=== PATIENT | female | born 1960 | race Caucasian/White ===

== ENCOUNTER → 2017-02-26 | Outpatient (REF) | payer OTHER, MEDICAID ==
[~2017-02-26] MED LIST: PROZ10CA7 PO
[2017-02-26 13:41] LABS: BASO % 0.7 % (0.0-1.0); EOS # 0.1 K/mm3 (0.0-0.50); EOS % 1.5 % (0.0-3.0); LARGE UNSTAINED CELL # 0.1 K/mm3 (0.0-0.4); LARGE UNSTAINED CELL % 2.1 % (0.0-4.0); LYMPH # 1.3 K/mm3 (1.5-4.5); LYMPH % 23.2 % (24.0-44.0); MEAN CORPUSCULAR HGB CONC 34.2 g/dl (32.0-36.5); MEAN CORPUSCULAR VOLUME 93.5 fl (80.0-96.0); MONO # 0.4 K/mm3 (0.0-0.8); MONO % 6.7 % (0.0-5.0); NEUTROPHILS # 3.6 K/mm3 (1.8-7.7); NEUTROPHILS % 65.7 % (36.0-66.0); PLATELET COUNT, AUTOMATED 286 k/mm3 (150-450); RED CELL DISTRIBUTION WIDTH 12.3 % (11.5-14.5); WHITE BLOOD COUNT 5.5 K/mm3 (4.0-10.0)
[2017-02-26 15:04] LABS: ALBUMIN 4.3 GM/DL (3.2-5.2); ALBUMIN/GLOBULIN RATIO 1.48 (1.00-1.93); ALKALINE PHOSPHATASE 86 U/L (45-117); ALT/SGPT 35 U/L (12-78); ANION GAP 9 MEQ/L (8-16); AST/SGOT 18 U/L (15-37); BILIRUBIN,TOTAL 0.5 MG/DL (0.2-1.0); BLOOD UREA NITROGEN 13 MG/DL (7-18); CALCIUM LEVEL 9.9 MG/DL (8.5-10.1); CARBON DIOXIDE LEVEL 27 MEQ/L (21-32); CHLORIDE LEVEL 109 MEQ/L (98-107); CHOLESTEROL LEVEL 227 MG/DL (<200); CREATININE FOR GFR 0.63 MG/DL (0.55-1.02); GLOMERULAR FILTRATION RATE > 60.0 (>51); GLUCOSE, FASTING 99 MG/DL (70-105); POTASSIUM SERUM 4.4 MEQ/L (3.5-5.1); SODIUM LEVEL 145 MEQ/L (136-145); TOTAL PROTEIN 7.2 GM/DL (6.4-8.2); TRIGLYCERIDES LEVEL 125 MG/DL (<150)
== END ==
LOC: M LAB REF 09:05
PROVIDERS: ATTEND Family Medicine Addiction Medicine
DX: Z00.01 Encounter for general adult medical examination with abnormal findings (principal)

== ENCOUNTER 2017-03-13 09:34 | Emergency (ER) | payer OTHER, MEDICAID ==
[~2017-03-13] VITALS: Ht 154.9 cm; Wt 56.8 kg
[2017-03-13 09:35] VITALS: BP 138/84
[2017-03-13] MEDS ORDERED: PROZ10CA7 PO (09:43)
== END 2017-03-13 10:11 | disposition home or self-care (01) ==
LOC: M ED 09:34
DX: Z11.9 Encounter for screening for infectious and parasitic diseases, unspecified (principal); F99 Mental disorder, not otherwise specified; Z79.899 Other long term (current) drug therapy; Z87.891 Personal history of nicotine dependence

== ENCOUNTER 2017-08-19 07:24 | Emergency (ER) | payer OTHER, MEDICAID ==
[2017-08-19] MEDS: IBUPROFEN 600 MG TAB PO (09:45)
[2017-08-19 10:35] LABS: FREE T4 0.95 NG/DL (0.76-1.46)
== END 2017-08-19 11:03 | disposition left against medical advice (07) ==
LOC: M ED 07:24
DX: M54.2 Cervicalgia (principal); F33.9 Major depressive disorder, recurrent, unspecified; Z87.891 Personal history of nicotine dependence
CPT/HCPCS: 70360

== ENCOUNTER → 2017-08-21 | Outpatient (REF) | payer OTHER ==
[2017-08-21 13:19] LABS: HIV 1&2 SCREEN CENTAUR NEGATIVE (NEGATIVE)
== END ==
LOC: M SFHCPLAZ 09:15
DX: Z11.4 Encounter for screening for human immunodeficiency virus [HIV] (principal); Z11.59 Encounter for screening for other viral diseases

== ENCOUNTER → 2017-09-08 | Outpatient (REF) | payer OTHER ==
[2017-09-08 13:19] LABS: HEMOGLOBIN 14.7 g/dl (12.0-16.0); MEAN CORPUSCULAR HEMOGLOBIN 30.4 pg (27.0-33.0); MEAN CORPUSCULAR HGB CONC 33.4 g/dl (32.0-36.5); MEAN CORPUSCULAR VOLUME 90.9 fl (80.0-96.0); PLATELET COUNT, AUTOMATED 271 10^3/uL (150-450); RED BLOOD COUNT 4.84 10^6/uL (4.00-5.40); RED CELL DISTRIBUTION WIDTH 12.2 % (11.5-14.5); WHITE BLOOD COUNT 8.9 10^3/uL (4.0-10.0)
[2017-09-08 14:12] LABS: ALBUMIN 4.3 GM/DL (3.2-5.2); ALBUMIN/GLOBULIN RATIO 1.48 (1.00-1.93); ALKALINE PHOSPHATASE 96 U/L (45-117); ALT/SGPT 24 U/L (12-78); ANION GAP 8 MEQ/L (8-16); AST/SGOT 16 U/L (7-37); BILIRUBIN,TOTAL 0.4 MG/DL (0.2-1.0); BLOOD UREA NITROGEN 13 MG/DL (7-18); CALCIUM LEVEL 9.3 MG/DL (8.5-10.1); CARBON DIOXIDE LEVEL 28 MEQ/L (21-32); CHLORIDE LEVEL 109 MEQ/L (98-107); CREATININE FOR GFR 0.63 MG/DL (0.55-1.30); GLOMERULAR FILTRATION RATE > 60.0 (>51); GLUCOSE, FASTING 98 MG/DL (70-100); POTASSIUM SERUM 4.1 MEQ/L (3.5-5.1); SODIUM LEVEL 145 MEQ/L (136-145); THYROID STIMULATING HORMONE 0.986 uIU/ML (0.358-3.740); TOTAL PROTEIN 7.2 GM/DL (6.4-8.2)
[2017-09-08 14:19] LABS: LUTEINIZING HORMONE 43.6 mIU/mL
[2017-09-08 14:20] LABS: FOLLICLE STIMULATING HORMONE 48.1 mIU/mL
== END ==
LOC: M SFHCPLAZ 11:57
DX: R19.4 Change in bowel habit (principal); R14.0 Abdominal distension (gaseous); N92.6 Irregular menstruation, unspecified

== ENCOUNTER → 2017-09-10 | Outpatient (REF) | payer OTHER ==
[2017-09-19 10:20] LABS: O+P EXAM Final report (.)
== END ==
LOC: M SFHCPLAZ 11:56
DX: R19.4 Change in bowel habit (principal)
CPT/HCPCS: 87177

== ENCOUNTER → 2017-09-13 | Outpatient (REF) | payer OTHER ==
[2017-09-19 00:08] LABS: O+P EXAM Final report (.)
== END ==
LOC: M SFHCPLAZ 11:50
DX: R19.4 Change in bowel habit (principal)
CPT/HCPCS: 87177

== ENCOUNTER → 2017-09-14 | Outpatient (CLI) | payer OTHER ==
[~2017-09-14] MED LIST changes: +GASTROGRAFIN SOLUTION 30ML (Q9963) As Ordered; +ISOVUE-370 76% 100ML VIAL (Q9967) As Ordered; -PROZ10CA7 PO
== END ==
LOC: M RAD 08:27
DX: R14.0 Abdominal distension (gaseous) (principal); R19.4 Change in bowel habit
CPT/HCPCS: Q9963

== ENCOUNTER → 2017-09-15 | Outpatient (REF) | payer OTHER | LOC: M SFHCPLAZ 09-16 11:37 | DX: R19.4 Change in bowel habit (principal) | CPT/HCPCS: 83630 ==

== ENCOUNTER → 2017-09-16 | Outpatient (REF) | payer OTHER ==
[2017-09-19 00:08] LABS: O+P EXAM Final report (.)
== END ==
LOC: M SFHCPLAZ 11:47
DX: R19.4 Change in bowel habit (principal)

== ENCOUNTER 2018-01-23 12:39 | Inpatient (IN) | payer MEDICAID, SELFPAY, OTHER ==
[2018-01-23 13:19] LABS: HEMOGLOBIN 13.4 g/dl (12.0-15.5); MEAN CORPUSCULAR HGB CONC 32.7 g/dl (32.0-36.5); MEAN CORPUSCULAR VOLUME 91.7 fl (80.0-96.0); PLATELET COUNT, AUTOMATED 331 10^3/uL (150-450); RED BLOOD COUNT 4.47 10^6/uL (4.00-5.40); RED CELL DISTRIBUTION WIDTH 12.2 % (11.5-14.5)
[2018-01-23 13:42] LABS: AMPHETAMINES LEVEL URINE NEGATIVE (NEGATIVE); BARBITURATES URINE NEGATIVE (NEGATIVE); BENZODIAZEPINES URINE NEGATIVE (NEGATIVE); CANNABINOIDS URINE NEGATIVE (NEGATIVE); COCAINE METABOLITE URINE NEGATIVE (NEGATIVE); METHADONE URINE NEGATIVE (NEGATIVE); OPIATES URINE NEGATIVE (NEGATIVE); PHENCYCLIDINE URINE NEGATIVE (NEGATIVE)
[2018-01-23 13:50] LABS: ALBUMIN 4.2 GM/DL (3.2-5.2); ALBUMIN/GLOBULIN RATIO 1.62 (1.00-1.93); ALKALINE PHOSPHATASE 99 U/L (45-117); ALT/SGPT 22 U/L (12-78); ANION GAP 12 MEQ/L (8-16); AST/SGOT 16 U/L (7-37); BILIRUBIN,DIRECT 0.1 MG/DL (0.0-0.2); BILIRUBIN,TOTAL 0.4 MG/DL (0.2-1.0); BLOOD UREA NITROGEN 11 MG/DL (7-18); CARBON DIOXIDE LEVEL 25 MEQ/L (21-32); CHLORIDE LEVEL 103 MEQ/L (98-107); CREATININE FOR GFR 0.74 MG/DL (0.55-1.30); ETHYL ALCOHOL (ETHANOL) < 0.003 % (0.000-0.010); GLOMERULAR FILTRATION RATE > 60.0 (>51); GLUCOSE, FASTING 172 MG/DL (70-100); POTASSIUM SERUM 3.7 MEQ/L (3.5-5.1); SALICYLATE LEVEL 2.2 MG/DL (5.0-30.0); SODIUM LEVEL 140 MEQ/L (136-145); THYROID STIMULATING HORMONE 0.486 uIU/ML (0.358-3.740); TOTAL PROTEIN 6.8 GM/DL (6.4-8.2)
[2018-01-23 13:54] LABS: ACETAMINOPHEN LEVEL < 2.0 UG/ML (10.0-30.0)
[2018-01-23] MEDS ORDERED: MAALOX 30 ML SUSP *UDC PO (16:15)
[2018-01-23] MEDS ORDERED: ACETAMINOPHEN TAB 650MG DOSE (2X325MG) PO (18:00)
[2018-01-24] MEDS: traZODone 50 MG TAB PO (21:37)
[2018-01-24] MEDS: ARIPiprazole 2 MG TAB PO (21:37)
[2018-01-24] MEDS: OLANZapine ORAL DISINTEGRATING TAB 5MG PO (21:38)
[2018-01-25] MEDS: OLANZapine ORAL DISINTEGRATING TAB 5MG PO (08:48)
[2018-01-25] MEDS: OLANZapine 5 MG TAB PO ×2 (15:36→21:27)
[2018-01-25] MEDS: traZODone 50 MG TAB PO (21:27)
[2018-01-26] MEDS: OLANZapine 5 MG TAB PO ×3 (08:19→21:42)
[2018-01-26] MEDS: FLUoxetine 10 MG CAP PO (08:19)
[2018-01-26] MEDS: CEPACOL LOZENGE PO (09:35)
[2018-01-26 09:43] LABS: HEMATOCRIT 39.5 % (36.0-47.0); HEMOGLOBIN 12.7 g/dl (12.0-15.5); MEAN CORPUSCULAR HEMOGLOBIN 30.5 pg (27.0-33.0); MEAN CORPUSCULAR HGB CONC 32.2 g/dl (32.0-36.5); PLATELET COUNT, AUTOMATED 278 10^3/uL (150-450); RED BLOOD COUNT 4.16 10^6/uL (4.00-5.40); RED CELL DISTRIBUTION WIDTH 12.5 % (11.5-14.5); WHITE BLOOD COUNT 4.1 10^3/uL (4.0-10.0)
[2018-01-26 10:14] LABS: ALBUMIN 3.6 GM/DL (3.2-5.2); ALBUMIN/GLOBULIN RATIO 1.33 (1.00-1.93); ALKALINE PHOSPHATASE 81 U/L (45-117); ALT/SGPT 23 U/L (12-78); ANION GAP 7 MEQ/L (8-16); AST/SGOT 10 U/L (7-37); BILIRUBIN,TOTAL 0.3 MG/DL (0.2-1.0); BLOOD UREA NITROGEN 9 MG/DL (7-18); CALCIUM LEVEL 8.9 MG/DL (8.5-10.1); CARBON DIOXIDE LEVEL 29 MEQ/L (21-32); CHLORIDE LEVEL 112 MEQ/L (98-107); CREATININE FOR GFR 0.64 MG/DL (0.55-1.30); GLOMERULAR FILTRATION RATE > 60.0 (>51); GLUCOSE, FASTING 86 MG/DL (70-100); POTASSIUM SERUM 4.1 MEQ/L (3.5-5.1); SODIUM LEVEL 148 MEQ/L (136-145); TOTAL PROTEIN 6.3 GM/DL (6.4-8.2)
[2018-01-26] MEDS: traZODone 50 MG TAB PO (21:41)
[2018-01-27 07:21] LABS: ANION GAP 5 MEQ/L (8-16); BLOOD UREA NITROGEN 14 MG/DL (7-18); CALCIUM LEVEL 9.1 MG/DL (8.5-10.1); CARBON DIOXIDE LEVEL 30 MEQ/L (21-32); CHLORIDE LEVEL 112 MEQ/L (98-107); CREATININE FOR GFR 0.65 MG/DL (0.55-1.30); GLOMERULAR FILTRATION RATE > 60.0 (>51); GLUCOSE, FASTING 93 MG/DL (70-100); POTASSIUM SERUM 4.2 MEQ/L (3.5-5.1); SODIUM LEVEL 147 MEQ/L (136-145)
[2018-01-27] MEDS: FLUoxetine 10 MG CAP PO (08:52)
[2018-01-27] MEDS: OLANZapine 5 MG TAB PO ×3 (08:52→20:48)
[2018-01-28 07:44] LABS: ANION GAP 8 MEQ/L (8-16); BLOOD UREA NITROGEN 20 MG/DL (7-18); CALCIUM LEVEL 9.4 MG/DL (8.5-10.1); CARBON DIOXIDE LEVEL 29 MEQ/L (21-32); CHLORIDE LEVEL 110 MEQ/L (98-107); CREATININE FOR GFR 0.65 MG/DL (0.55-1.30); GLOMERULAR FILTRATION RATE > 60.0 (>51); GLUCOSE, FASTING 93 MG/DL (70-100); POTASSIUM SERUM 4.3 MEQ/L (3.5-5.1); SODIUM LEVEL 147 MEQ/L (136-145)
[2018-01-28] MEDS: OLANZapine 5 MG TAB PO ×3 (08:31→21:28)
[2018-01-28] MEDS: FLUoxetine 10 MG CAP PO (08:31)
[2018-01-28] MEDS: traZODone 50 MG TAB PO (21:28)
[2018-01-29 07:50] LABS: ANION GAP 8 MEQ/L (8-16); BLOOD UREA NITROGEN 18 MG/DL (7-18); CALCIUM LEVEL 9.4 MG/DL (8.5-10.1); CARBON DIOXIDE LEVEL 29 MEQ/L (21-32); CHLORIDE LEVEL 109 MEQ/L (98-107); CREATININE FOR GFR 0.69 MG/DL (0.55-1.30); GLOMERULAR FILTRATION RATE > 60.0 (>51); GLUCOSE, FASTING 92 MG/DL (70-100); POTASSIUM SERUM 4.2 MEQ/L (3.5-5.1); SODIUM LEVEL 146 MEQ/L (136-145)
[2018-01-29] MEDS: OLANZapine 5 MG TAB PO ×3 (08:13→20:41)
[2018-01-29] MEDS: FLUoxetine 10 MG CAP PO (08:13)
[2018-01-29] MEDS: traZODone 50 MG TAB PO (20:41)
[2018-01-29] MEDS: MOM 30ML SUSPENSION UDC PO (20:41)
[2018-01-30 07:14] LABS: ANION GAP 7 MEQ/L (8-16); BLOOD UREA NITROGEN 20 MG/DL (7-18); CARBON DIOXIDE LEVEL 30 MEQ/L (21-32); CHLORIDE LEVEL 109 MEQ/L (98-107); CREATININE FOR GFR 0.62 MG/DL (0.55-1.30); GLOMERULAR FILTRATION RATE > 60.0 (>51); GLUCOSE, FASTING 86 MG/DL (70-100); POTASSIUM SERUM 4.7 MEQ/L (3.5-5.1); SODIUM LEVEL 146 MEQ/L (136-145)
[2018-01-30] MEDS: FLUoxetine 20 MG CAP PO (08:17)
[2018-01-30] MEDS: OLANZapine 5 MG TAB PO ×3 (08:17→20:57)
[2018-01-30] MEDS: MOM 30ML SUSPENSION UDC PO (20:56)
[2018-01-30] MEDS: traZODone 50 MG TAB PO (20:57)
[2018-01-31 07:12] LABS: ANION GAP 6 MEQ/L (8-16); BLOOD UREA NITROGEN 17 MG/DL (7-18); CALCIUM LEVEL 9.1 MG/DL (8.5-10.1); CARBON DIOXIDE LEVEL 31 MEQ/L (21-32); CHLORIDE LEVEL 110 MEQ/L (98-107); CREATININE FOR GFR 0.63 MG/DL (0.55-1.30); GLOMERULAR FILTRATION RATE > 60.0 (>51); GLUCOSE, FASTING 77 MG/DL (70-100); POTASSIUM SERUM 4.4 MEQ/L (3.5-5.1); SODIUM LEVEL 147 MEQ/L (136-145)
[2018-01-31] MEDS: FLUoxetine 20 MG CAP PO (08:17)
[2018-01-31] MEDS: OLANZapine 5 MG TAB PO ×3 (08:17→20:49)
[2018-01-31] MEDS: traZODone 50 MG TAB PO (20:49)
[2018-02-01 07:18] LABS: ANION GAP 8 MEQ/L (8-16); BLOOD UREA NITROGEN 14 MG/DL (7-18); CALCIUM LEVEL 9.1 MG/DL (8.5-10.1); CARBON DIOXIDE LEVEL 28 MEQ/L (21-32); CHLORIDE LEVEL 109 MEQ/L (98-107); CREATININE FOR GFR 0.62 MG/DL (0.55-1.30); GLOMERULAR FILTRATION RATE > 60.0 (>51); GLUCOSE, FASTING 76 MG/DL (70-100); POTASSIUM SERUM 4.4 MEQ/L (3.5-5.1); SODIUM LEVEL 145 MEQ/L (136-145)
[2018-02-01] MEDS: OLANZapine 5 MG TAB PO (08:34)
[2018-02-01] MEDS: FLUoxetine 20 MG CAP PO (08:34)
[2018-02-01] MEDS: traZODone 50 MG TAB PO (21:00)
[2018-02-01] MEDS: OLANZapine 10 MG TAB PO (21:00)
[2018-02-02 08:07] LABS: ANION GAP 7 MEQ/L (8-16); BLOOD UREA NITROGEN 13 MG/DL (7-18); CALCIUM LEVEL 9.3 MG/DL (8.5-10.1); CARBON DIOXIDE LEVEL 29 MEQ/L (21-32); CHLORIDE LEVEL 111 MEQ/L (98-107); CREATININE FOR GFR 0.62 MG/DL (0.55-1.30); GLOMERULAR FILTRATION RATE > 60.0 (>51); GLUCOSE, FASTING 82 MG/DL (70-100); POTASSIUM SERUM 4.3 MEQ/L (3.5-5.1); SODIUM LEVEL 147 MEQ/L (136-145)
[2018-02-02] MEDS: OLANZapine 5 MG TAB PO (08:12)
[2018-02-02] MEDS: FLUoxetine 20 MG CAP PO (08:12)
[2018-02-02] MEDS: OLANZapine 10 MG TAB PO (20:55)
[2018-02-02] MEDS: MOM 30ML SUSPENSION UDC PO (20:55)
[2018-02-02] MEDS: traZODone 50 MG TAB PO (20:55)
[2018-02-03 07:23] LABS: ANION GAP 7 MEQ/L (8-16); BLOOD UREA NITROGEN 18 MG/DL (7-18); CARBON DIOXIDE LEVEL 29 MEQ/L (21-32); CHLORIDE LEVEL 110 MEQ/L (98-107); GLOMERULAR FILTRATION RATE > 60.0 (>51); GLUCOSE, FASTING 81 MG/DL (70-100); POTASSIUM SERUM 4.2 MEQ/L (3.5-5.1); SODIUM LEVEL 146 MEQ/L (136-145)
[2018-02-03] MEDS: FLUoxetine 20 MG CAP PO (08:25)
[2018-02-03] MEDS: OLANZapine 5 MG TAB PO (08:25)
[2018-02-03] MEDS: DOXYCYCLINE HYCLATE 100 MG TAB PO ×2 (14:13→21:19)
[2018-02-03] MEDS: OLANZapine 10 MG TAB PO (21:19)
[2018-02-03] MEDS: traZODone 50 MG TAB PO (21:19)
[2018-02-04 08:27] LABS: ANION GAP 9 MEQ/L (8-16); BLOOD UREA NITROGEN 18 MG/DL (7-18); CARBON DIOXIDE LEVEL 26 MEQ/L (21-32); CHLORIDE LEVEL 108 MEQ/L (98-107); CREATININE FOR GFR 0.77 MG/DL (0.55-1.30); GLOMERULAR FILTRATION RATE > 60.0 (>51); GLUCOSE, FASTING 144 MG/DL (70-100); SODIUM LEVEL 143 MEQ/L (136-145)
[2018-02-04] MEDS: OLANZapine 5 MG TAB PO (08:35)
[2018-02-04] MEDS: DOXYCYCLINE HYCLATE 100 MG TAB PO (08:35)
[2018-02-04] MEDS: FLUoxetine 20 MG CAP PO (08:35)
== END 2018-02-04 10:20 | disposition home or self-care (01) | DRG 751 ==
LOC: M ED 12:39 → M ED INP 16:15 → M PSY 17:25
DX: F33.3 Major depressive disorder, recurrent, severe with psychotic symptoms (principal); E87.0 Hyperosmolality and hypernatremia; R45.851 Suicidal ideations; Z59.0 Homelessness; K21.9 Gastro-esophageal reflux disease without esophagitis; M54.5 Low back pain; J06.9 Acute upper respiratory infection, unspecified

== ENCOUNTER → 2018-03-09 | Outpatient (CLI) | payer MEDICAID ==
[2018-03-09 12:21] LABS: BASO # 0.1 10^3/uL (0.0-0.2); BASO % 1.1 % (0.0-1.0); EOS # 0.2 10^3/uL (0.0-0.50); EOS % 2.8 % (0.0-3.0); HEMATOCRIT 40.6 % (36.0-47.0); HEMOGLOBIN 13.2 g/dl (12.0-15.5); IMMATURE GRANULOCYTE % 0.4 % (0-3.0); LYMPH # 1.4 10^3/uL (1.5-4.5); LYMPH % 27.1 % (24.0-44.0); MEAN CORPUSCULAR HEMOGLOBIN 30.8 pg (27.0-33.0); MEAN CORPUSCULAR HGB CONC 32.5 g/dl (32.0-36.5); MEAN CORPUSCULAR VOLUME 94.9 fl (80.0-96.0); MONO # 0.7 10^3/uL (0.0-0.8); MONO % 13.4 % (0.0-5.0); NEUTROPHILS # 2.9 10^3/uL (1.8-7.7); NEUTROPHILS % 55.2 % (36.0-66.0); PLATELET COUNT, AUTOMATED 229 10^3/uL (150-450); RED BLOOD COUNT 4.28 10^6/uL (4.00-5.40); RED CELL DISTRIBUTION WIDTH 13.5 % (11.5-14.5); WHITE BLOOD COUNT 5.3 10^3/uL (4.0-10.0)
[2018-03-09 12:42] LABS: C REACTIVE PROTEIN QUANTITATIV < 0.30 MG/DL (0.00-0.30)
[2018-03-09 12:49] LABS: ERYTHROCYTE SEDIMENTATION RATE 6 mm/hr (0-30)
[2018-03-11 00:06] LABS: Lyme Disease IgG/IgM Antibodie <0.91 ISR (0.00-0.90); Lyme Disease IgM Ab Quantitati <0.80 index (0.00-0.79)
== END ==
LOC: M WUC 10:19
DX: Z86.19 Personal history of other infectious and parasitic diseases (principal)
CPT/HCPCS: 86140

== ENCOUNTER → 2018-12-16 | Outpatient (REF) | payer MEDICARE, MEDICAID ==
[~2018-12-16] MED LIST changes: +DOXE25CA PO; +DOXY-350 PO; +DOXY100T PO; +FLUO20CA19 PO; -GASTROGRAFIN SOLUTION 30ML (Q9963) As Ordered; -ISOVUE-370 76% 100ML VIAL (Q9967) As Ordered; +OLAN15TA PO; +OLAN7.5T PO; +PROZ10CA7 PO
[2018-12-16 13:46] LABS: HEMATOCRIT 42.7 % (36.0-47.0); HEMOGLOBIN 14.1 g/dl (12.0-15.5); MEAN CORPUSCULAR HEMOGLOBIN 30.4 pg (27.0-33.0); PLATELET COUNT, AUTOMATED 263 10^3/uL (150-450); RED BLOOD COUNT 4.64 10^6/uL (4.00-5.40); WHITE BLOOD COUNT 7.2 10^3/uL (4.0-10.0)
[2018-12-16 14:03] LABS: ALBUMIN 3.7 GM/DL (3.2-5.2); ALT/SGPT 37 U/L (12-78); BILIRUBIN,TOTAL 0.3 MG/DL (0.2-1.0); BLOOD UREA NITROGEN 16 MG/DL (7-18); CALCIUM LEVEL 9.1 MG/DL (8.5-10.1); CARBON DIOXIDE LEVEL 26 MEQ/L (21-32); CHLORIDE LEVEL 110 MEQ/L (98-107); CREATININE FOR GFR 0.73 MG/DL (0.55-1.30); GLOMERULAR FILTRATION RATE > 60.0 (>51); GLUCOSE, FASTING 103 MG/DL (70-100); SODIUM LEVEL 143 MEQ/L (136-145); TOTAL PROTEIN 6.9 GM/DL (6.4-8.2)
== END ==
LOC: M SFHCPLAZ 11:18
PROVIDERS: ATTEND Nurse Practitioner Adult Health
DX: Z00.00 Encounter for general adult medical examination without abnormal findings (principal); F41.8 Other specified anxiety disorders; Z86.19 Personal history of other infectious and parasitic diseases
CPT/HCPCS: 36415; 80053; 84443; 85027; G0463

== ENCOUNTER → 2019-02-25 | Outpatient (REF) | payer MEDICARE, MEDICAID ==
[2019-03-01 14:07] LABS: HPV HYBRID CAPTURE II Negative (Negative)
== END ==
LOC: M SFHCWAGY 14:58
PROVIDERS: ATTEND Nurse Practitioner Women's Health
DX: Z12.4 Encounter for screening for malignant neoplasm of cervix (principal)
CPT/HCPCS: 87624; G0123; G0463

== ENCOUNTER → 2019-03-21 | Outpatient (CLI) | payer MEDICARE, MEDICAID ==
--- NOTE | 2019-03-21 15:43 | REP ---
BILATERAL SCREENING DIGITAL MAMMOGRAM WITH 3D TOMOSYNTHESIS: There are no palpable abnormalities or other breast complaints. The the patient states she had a clinical breast examination February,. The the patient states she performs self-breast examinations zero times per year. The Tyrer Cuzick Score is: 7.9% . Comparison is 01/14/2012. The breasts are heterogeneously dense, which could obscure small masses. There is no dominant mass, micro calcific cluster or architectural distortion that would indicate malignancy. There are scattered benign calcifications, not significantly changed. There are no additional findings on 3D tomosynthesiss. There is no change from the prior study. Impression: BIRADS/ACR category 2 mammogram. Benign findings. Recommendations: Routine annual screening mammography. Because of the increased breast density, annual adjunctive breast MRI in addition to screening mammography is recommended. These can be performed at alternating six month intervals. This mammogram was interpreted with the aid of a FDA approved computer-aided detection system. A. Negative mammogram reports should not delay biopsy if a dominant or clinically suspicious mass is present. B. Not all breast cancers are identified by mammography or tomosynthesis. C. Adenosis and dense breasts may obscure an underlying neoplasm. Patient letter M1 dense breasts. Electronically Signed by Robel Marx MD 03/21/2019 03:35 P
== END ==
LOC: M WHC 13:40
PROVIDERS: ATTEND Nurse Practitioner Women's Health
DX: Z12.31 Encounter for screening mammogram for malignant neoplasm of breast (principal)

== ENCOUNTER → 2019-04-05 | Outpatient (CLI) | payer MEDICARE, MEDICAID ==
[2019-04-05 09:54] LABS: BASO # 0.1 10^3/uL (0.0-0.2); BASO % 1.1 % (0.0-1.0); EOS # 0.1 10^3/uL (0.0-0.5); EOS % 1.6 % (0.0-3.0); HEMATOCRIT 47.1 % (36.0-47.0); HEMOGLOBIN 15.2 g/dl (12.0-15.5); LYMPH # 1.7 10^3/uL (1.5-5.0); LYMPH % 29.9 % (24.0-44.0); MEAN CORPUSCULAR HEMOGLOBIN 30.2 pg (27.0-33.0); MEAN CORPUSCULAR HGB CONC 32.3 g/dl (32.0-36.5); MEAN CORPUSCULAR VOLUME 93.6 fl (80.0-96.0); MONO # 0.6 10^3/uL (0.0-0.8); MONO % 10.7 % (0.0-5.0); NEUTROPHILS # 3.2 10^3/uL (1.5-8.5); NEUTROPHILS % 56.3 % (36.0-66.0); PLATELET COUNT, AUTOMATED 288 10^3/uL (150-450); RED BLOOD COUNT 5.03 10^6/uL (4.00-5.40); WHITE BLOOD COUNT 5.6 10^3/uL (4.0-10.0)
[2019-04-05 10:11] LABS: HEMOGLOBIN A1c 5.5 %
[2019-04-05 10:25] LABS: ALT/SGPT 32 U/L (12-78); BILIRUBIN,DIRECT 0.1 MG/DL (0.0-0.2); BILIRUBIN,TOTAL 0.5 MG/DL (0.2-1.0); BLOOD UREA NITROGEN 13 MG/DL (7-18); CALCIUM LEVEL 9.3 MG/DL (8.5-10.1); CARBON DIOXIDE LEVEL 27 MEQ/L (21-32); CHLORIDE LEVEL 109 MEQ/L (98-107); CHOLESTEROL LEVEL 246 MG/DL (<200); CHOLESTEROL RISK RATIO 3.967 (<5); CREATININE FOR GFR 0.83 MG/DL (0.55-1.30); GLOMERULAR FILTRATION RATE > 60.0 (>51); GLUCOSE, FASTING 91 MG/DL (70-100); HDL CHOLESTEROL 62 MG/DL (>40); LDL CHOLESTEROL 144 MG/DL (<100); NON-HDL-C 184 MG/DL; POTASSIUM SERUM 4.2 MEQ/L (3.5-5.1); SODIUM LEVEL 142 MEQ/L (136-145); TOTAL PROTEIN 7.3 GM/DL (6.4-8.2); TRIGLYCERIDES LEVEL 201 MG/DL (<150)
[2019-04-05 10:53] LABS: TOTAL 25(OH) VITAMIN D 29.4 NG/ML (30.0-100.0); VITAMIN B12 LEVEL 729 PG/ML (247-911)
== END ==
LOC: M LAB 09:08
PROVIDERS: ATTEND Nurse Practitioner Psychiatric/Mental Health
DX: Z51.81 Encounter for therapeutic drug level monitoring (principal); Z79.899 Other long term (current) drug therapy; Z13.9 Encounter for screening, unspecified

== ENCOUNTER → 2019-10-06 | Outpatient (CLI) | payer MEDICARE, MEDICAID ==
[~2019-10-06] MED LIST changes: -FLUO20CA19 PO; +FLUO20CA22 PO
--- NOTE | 2019-10-06 13:34 | REP ---
DIAGNOSTIC MAMMOGRAM LEFT BREAST WITH LEFT BREAST ULTRASOUND: HISTORY: Palpable lump 12 -o'clock left breast for 4 days. No family history of breast cancer. Tyrer-Cuzick lifetime risk of breast cancer 7.7%. COMPARISON: 03/21/2019 and 01/14/2012. MLO and CC views of the left breast are performed with 3D tomosynthesis. The area of the palpable lump is marked on the skin and additional spot compression views are performed. There is moderate fibroglandular tissue in the upper outer quadrant of the left breast. At the site of the palpable lump in the mid third of the left breast, at 12-o'clock position, there appears to be a spiculated mass approximately 2 cm in diameter. I see no other mass or clustered microcalcifications. Real-time sonographic evaluation of the left breast is performed at the 12-o'clock position at the site of the palpable lump. There is a mixed echogenicity spiculated nodule measuring 1.7 x 1.0 x 1.5 cm. IMPRESSION: BIRADS 4: BI-RADS/ACR category 4 mammogram. Suspicious Abnormality - biopsy should be considered. ACR 4 suspicious. At the 12-o'clock position, at the site of the palpable lump, there appears to be a spiculated nodule both mammographically and sonographically. Diameter on the mammogram is about 2 cm, by ultrasound approximately 1.7 cm. Recommend ultrasound-guided biopsy with postprocedure mammogram. This mammogram was interpreted with the aid of an FDA-approved computer-aided detection system. The patient states she/he had a clinical breast exam in September 2019. Patient letter requested is M4.
== END ==
LOC: M WHC 10:35
PROVIDERS: ATTEND Nurse Practitioner Women's Health
DX: N63.25 Unspecified lump in the left breast, overlapping quadrants (principal)
CPT/HCPCS: 76642; 77065; G0279; G0463

== ENCOUNTER → 2019-10-18 | Outpatient (CLI) | payer MEDICARE, MEDICAID ==
[2019-10-18 13:27] VITALS: BP 114/62
--- NOTE | 2019-10-18 15:40 | REP ---
DIGITAL DIAGNOSTIC UNILATERAL LEFT BREAST MAMMOGRAPHY WITH CAD: Two views. HISTORY: Marker clip placement views. The patient status post ultrasound-guided needle biopsy procedure and clip placement. Comparison mammography is from October 06, 2019. MAMMOGRAPHIC FINDINGS: A needle biopsy marker clip is noted in the small spiculated area at the 12-o'clock position in the left breast. There is some post biopsy air in the superior aspect of the left breast as well. No hematoma is seen. Findings are otherwise unchanged. IMPRESSION: Needle biopsy marker clip in good position. This mammogram was interpreted with the aid of an FDA-approved computer-aided detection system.
--- NOTE | 2019-10-18 15:53 | REP ---
FOCUSED LEFT BREAST SONOGRAPHY: HISTORY: Left breast mass. Ultrasound guided biopsy procedure. FINDINGS: Sonographic guidance is provided to Dr. Sandoval who performed an ultrasound-guided needle biopsy procedure and marker clip placement.
--- NOTE | 2019-10-19 12:50 | ROOPDOC ---
[facility] Report Of Operation Report of Operation DATE OF PROCEDURE: 10/18/19 PREPROCEDURE DIAGNOSES: Left breast lump POSTPROCEDURE DIAGNOSES: Left breast lump. PROCEDURE: Ultrasound guided left breast lump biopsy with clip placement. SURGEON: Anna Leon FILTER BED PLACER: ANESTHESIA: Local anesthetic was used. ESTIMATED BLOOD LOSS: Approximately 1 mL. COMPLICATIONS: none. REMARKS: post biopsy clip seen in expected location on mammogram DESCRIPTION OF PROCEDURE: Lidocaine 1% LOT [id number] Expiration 07/2020 Sodium Bicarbonate 8.4% LOT [id number] Expiration 11/2020 Hydromark clip LOT [id number] Expiration 04/2022 SHAPE 4 Bx device: BARD [id number] x10 cm LOT [id number] Expiration 06/2022 Informed consent was obtained. The most common risk and possible complications including bleeding, hematoma, bruising, infection, injury to surrounding structures were explained to the patient and she expressed understanding. Patient was placed on the bed in the supine position. Appropriate time out was done stating patients name, date of , and the procedure to be performed. The left breast was prepped and draped in the usual fashion. The ultrasound was used to confirm the location of the lesion in the left breast at 12:00 5 centimeters from the nipple. Plain Lidocaine 1% and 8.4% sodium bicarbonate 10:1 mix was used to numb the ski n, the biopsy site and tissues along the anticipated biopsy tract. Small skin incision was made with blade number 11. BARD Marquee 14G cannula with introducer ([id number]) was inserted through the incision and advanced under the ultrasound guidance to position immediately adjacent to the lesion. Next, the introducer was removed and BARD Marquee 14G biopsy device was places in the can nula. Pre-biopsy imaging, and post-biopsy imaging were captured. Five good core biopsies were taken at various levels of the lesion. Specimen was placed in formaldehyde, labeled with appropriate biopsy site and patients name, and sent to pathology for evaluation. Next, the biopsy device was withdrawn and a clip introducer was inserted into the biopsy site via the cannula. The Hydromark clip was deployed under direct vision. Post-clip placement image was captured. Manual pressure over the biopsy cavity and tract was held after the clip introducer was withdrawn. No bleeding was noted upon removal of the pressure. Post-biopsy mammogram of the left breast was obtained and showed clip in expected position. Postprocedural dressing was placed. Patient tolerated procedure well. Discharge instructions were discussed with the patient and she expressed understanding. ANNA LEON DO Oct 19, 2019 11:31
== END ==
LOC: M WHCPRO 12:27
PROVIDERS: ATTEND Surgery
DX: C50.912 Malignant neoplasm of unspecified site of left female breast (principal)

== ENCOUNTER → 2019-10-21 | Outpatient (CLI) | payer MEDICARE, MEDICAID | LOC: M PLALAB 15:55 | PROVIDERS: ATTEND Surgery | DX: Z80.8 Family history of malignant neoplasm of other organs or systems (principal) ==

== ENCOUNTER → 2019-10-24 | Outpatient (REF) | payer MEDICARE, MEDICAID ==
[2019-10-24 15:38] LABS: BLOOD UREA NITROGEN 12 MG/DL (7-18); CALCIUM LEVEL 9.3 MG/DL (8.5-10.1); CARBON DIOXIDE LEVEL 30 MEQ/L (21-32); CHLORIDE LEVEL 106 MEQ/L (98-107); CREATININE FOR GFR 0.67 MG/DL (0.55-1.30); GLOMERULAR FILTRATION RATE > 60.0 (>51); GLUCOSE, FASTING 129 MG/DL (70-100); POTASSIUM SERUM 4.3 MEQ/L (3.5-5.1); SODIUM LEVEL 139 MEQ/L (136-145)
== END ==
LOC: M PLALAB 12:30
PROVIDERS: ATTEND Surgery
DX: C50.912 Malignant neoplasm of unspecified site of left female breast (principal)

== ENCOUNTER → 2019-10-26 | Outpatient (CLI) | payer MEDICARE, MEDICAID ==
[~2019-10-26] MED LIST changes: +PROHANCE 279.3MG/ML 15ML VIAL As Ordered ONE
--- NOTE | 2019-10-26 15:39 | REP ---
MRI BILATERAL BREASTS WITH AND WITHOUT CONTRASTS: HISTORY: Infiltrating ductal carcinoma of the left breast. Comparison mammogram and ultrasound 10/06/2019. TECHNIQUE: Multiple sequences obtained in the axial, coronal and sagittal planes prior to and following the intravenous administration of 14 mL ProHance. Images are evaluated in the Group-IB software including dynamic post-IV gadolinium axial T1 fat sat images, subtraction images, color overlay images, CAD images and MIP reconstruction images. Moderate fibroglandular tissue is seen bilaterally. There is mild background parenchymal enhancement bilaterally. Nonenlarged axillary lymph nodes are present bilaterally. Several small cysts are scattered throughout the breasts, more so on the left than on the right, all less than 1 cm in diameter. At the 12-o'clock position of the left breast at the site of the biopsied mass, there is a small amount of fluid in the mass with signal dropout from the biopsy clip. The irregular spiculated mass measures approximately 1.6 cm in diameter. The color overlay images show areas of predominantly washout and plateau enhancement within this mass. More inferiorly and laterally about the level of the nipple, at about 3-o'clock, 4-5 cm from the nipple, there is an irregular focal enhancing nodule with mixed washout, plateau and persistent enhancement. The nodule measures approximately 7 mm in maximum diameter and appears suspicious. No other enhancing nodule or mass is seen bilaterally. IMPRESSION: BIRADS category 6, known left breast cancer. The irregular spiculated mass at 12-o'clock position left breast demonstrates suspicious enhancement with irregular spiculated margins. There is an internal biopsy clip and a small amount of postbiopsy fluid at that location. The diameter is approximately 1.6 cm. More inferolaterally, in the left breast at about the 3-o'clock position, at the level of the nipple, is an irregular suspicious enhancing nodule 7 mm in diameter. No MRI evidence of suspicious adenopathy. Electronically Signed by Robel Wolff MD 10/26/2019 04:02 P
== END ==
LOC: M RAD 10:04
PROVIDERS: ATTEND Surgery
DX: C50.912 Malignant neoplasm of unspecified site of left female breast (principal)
CPT/HCPCS: A9576; C8908

== ENCOUNTER → 2019-11-07 | Outpatient (CLI) | payer MEDICARE, MEDICAID ==
[~2019-11-07] MED LIST changes: -PROHANCE 279.3MG/ML 15ML VIAL As Ordered ONE
--- NOTE | 2019-11-07 17:30 | REP ---
ULTRASOUND LEFT BREAST: Real-time sonographic evaluation of left breast performed and correlated with the recent breast MRI, 10/26/2019. The breast MRI showed a biopsy-proven infiltrating ductal carcinoma in the left breast at about 12-o'clock position. More inferolaterally at about the 3-o'clock position at the level of the nipple, an irregular suspicious enhancing nodule was seen by MRI measuring 7 mm in diameter. This is a second-look ultrasound to attempt visualize that irregular nodule. Real-time sonographic evaluation of the 3-o'clock position of the left breast is performed. I was present for ultrasound evaluation. At 3-o'clock position, a hypoechoic nodule is seen measuring 7 mm in diameter, consistent with a complex cyst. The irregular nodule seen by MRI could not be seen sonographically. IMPRESSION: The irregular nodule at 3-o'clock position left breast visualized by the MRI 10/26/2019 cannot be visualized by ultrasound. This would need to be biopsied with MR guidance. Electronically Signed by Robel Wolff MD 11/07/2019 07:36 P
== END ==
LOC: M RAD 13:30
PROVIDERS: ATTEND Surgery
DX: R92.8 Other abnormal and inconclusive findings on diagnostic imaging of breast (principal); N63.20 Unspecified lump in the left breast, unspecified quadrant

== ENCOUNTER → 2019-12-08 | Outpatient (CLI) | payer MEDICARE ==
[~2019-12-08] MED LIST changes: +ALEN70TA82 PO; +ANAS1TAB2 PO; +CALC1TAB63 PO; +FLUO40CA PO; +GLUCTAB6 PO; +MULTCAP PO; +OMEG12003 PO; +SM M250T2 PO; +ULTR50TA8 PO; +VITA1CAP25 PO; +VITA25TA3 PO; +VITA500C24 PO; +VITATAB73 PO; +[UNRECOGNIZED DRUG - CODE]
--- NOTE | 2019-12-08 15:09 | REP ---
DIGITAL DIAGNOSTIC UNILATERAL LOWER LEFT BREAST MAMMOGRAPHY WITH CAD: Two views. HISTORY: Marker clip placement views. The patient is status post MR guided needle biopsy procedure with marker clip placement. A previous positive ultrasound guided needle biopsy has been performed in the same left breast. Comparison mammography October 18, 2019 and October 06, 2019. MAMMOGRAPHIC FINDINGS: Scattered fibroglandular elements are seen. The originally placed marker clip is again seen in the superior left breast at approximately 11-o'clock position. Today's MR guided biopsy associated marker clip is seen more inferiorly and more laterally in the upper outer quadrant. There is no evidence of hematoma. There is no associated mammographic abnormality. IMPRESSION: Marker clips appear in good position.
== END ==
LOC: M WHC 11:46
PROVIDERS: ATTEND Surgery
DX: R92.8 Other abnormal and inconclusive findings on diagnostic imaging of breast (principal); C50.912 Malignant neoplasm of unspecified site of left female breast

== ENCOUNTER → 2019-12-08 | Outpatient (CLI) | payer MEDICARE, MEDICAID ==
[~2019-12-08] MED LIST changes: +LIDOCAINE 1% MDV 20ML VIAL As Ordered ONE; +PROHANCE 279.3MG/ML 15ML VIAL As Ordered ONE
[2019-12-08 11:28] VITALS: BP 149/78
--- NOTE | 2019-12-08 17:17 | REP ---
MRI GUIDED LEFT BREAST BIOPSY The procedure was performed under the personal supervision of Dr. Lopez. The patient has a history of A 7 mm enhancing nodule inferolaterally in the left breast at about the 3 o'clock position seen on a previous MRI dated 10/26/2019. The risks and benefits of the procedure were explained to the patient and informed consent was obtained. The left breast nodule was localized using pre and post gadolinium MRI sequences. Targeting was performed by Dr. Lopez based on the MRI images. The skin was prepped and draped in a sterile fashion. 1% lidocaine was used as a local anesthetic. The obturator was inserted and a scan was performed. Images demonstrate good placement of the obturator. The stylet was removed and an 8-gauge suction assisted Mammotome needle was inserted and six core biopsy samples were obtained. A Hydromark shape 3 marker clip was inserted. The needle was then removed. Follow-up images demonstrate good marker clip placement. There is an area of low signal intensity adjacent to the biopsy site which likely represents air from the biopsy. The patient tolerated the procedure well and there were no immediate complications. After the appropriate amount of monitored convalescence the patient was discharged from the department. Electronically Signed by MICKEY Hair 12/08/2019 04:09 P Electronically Signed by Sheng Lopez MD 12/08/2019 05:08 P
== END ==
LOC: M IRPRO 09:17
PROVIDERS: ATTEND Surgery
DX: C50.912 Malignant neoplasm of unspecified site of left female breast (principal)
CPT/HCPCS: 19085; 88305; A9576

== ENCOUNTER → 2019-12-22 | Outpatient (CLI) | payer MEDICARE ==
[~2019-12-22] MED LIST changes: -ALEN70TA82 PO; -ANAS1TAB2 PO; -CALC1TAB63 PO; -GLUCTAB6 PO; -LIDOCAINE 1% MDV 20ML VIAL As Ordered ONE; -OMEG12003 PO; -PROHANCE 279.3MG/ML 15ML VIAL As Ordered ONE; -SM M250T2 PO; -VITA500C24 PO
== END ==
LOC: M LABSMTC 10:34
PROVIDERS: ATTEND Anesthesiology
DX: Z03.818 Encounter for observation for suspected exposure to other biological agents ruled out (principal); Z11.59 Encounter for screening for other viral diseases
CPT/HCPCS: C9803; U0003

== ENCOUNTER → 2019-12-26 | Outpatient (CLI) | payer MEDICARE, MEDICAID ==
--- NOTE | 2019-12-26 11:45 | REPPI ---
REASON: Preoperative evaluation. The latest prior for comparison is a portable examination obtained on 04/14/2013. There is a stable discoid opacity in the left lower lobe. Lung alvarez are otherwise clear. No acute patchy parenchymal opacities or pleural effusions have developed. The pleural angles are sharp. The heart is not enlarged. The osseous structures are within normal limits. IMPRESSION: No evidence of acute cardiopulmonary disease. Electronically Signed by Wilton Pa DO 12/26/2019 01:23 P
== END ==
LOC: M PLAIMG 08:34
PROVIDERS: ATTEND Nurse Practitioner Adult Health
DX: Z01.818 Encounter for other preprocedural examination (principal); C50.912 Malignant neoplasm of unspecified site of left female breast; R91.8 Other nonspecific abnormal finding of lung field

== ENCOUNTER → 2019-12-26 | Outpatient (REF) | payer MEDICARE, MEDICAID ==
[2019-12-26 14:39] LABS: HEMATOCRIT 45.2 % (36.0-47.0); HEMOGLOBIN 14.5 g/dl (12.0-15.5); MEAN CORPUSCULAR HEMOGLOBIN 30.6 pg (27.0-33.0); MEAN CORPUSCULAR HGB CONC 32.1 g/dl (32.0-36.5); MEAN CORPUSCULAR VOLUME 95.4 fl (80.0-96.0); PLATELET COUNT, AUTOMATED 291 10^3/uL (150-450); RED BLOOD COUNT 4.74 10^6/uL (4.00-5.40); WHITE BLOOD COUNT 6.2 10^3/uL (4.0-10.0)
== END ==
LOC: M PLALAB 08:32
PROVIDERS: ATTEND Surgery
DX: Z01.818 Encounter for other preprocedural examination (principal)

== ENCOUNTER 2019-12-27 07:35 | Day surgery (SDC) | payer MEDICARE ==
[~2019-12-27] VITALS: Ht 154.9 cm; Wt 69.8 kg
[~2019-12-27 07:35] MED LIST changes: +HEPARIN SOD (PORCINE) 5000UNITS/ML VIAL (J1644 PER 1000UNITS) SQ ONE; +LIDOCAINE 1% MDV 20ML VIAL SQ PRN; +LR 1,000 ML IV ONE; -ULTR50TA8 PO; +ceFAZolin SOD 2 GM in IV 1 EA IV ONE
[2019-12-27] MEDS ORDERED: BUPIVACAINE HCL 0.25% 30ML VIAL As Ordered ONE (09:55)
[2019-12-27] MEDS ORDERED: LIDOCAINE 1% SDV 30ML VIAL As Ordered ONE (09:55)
[2019-12-27] MEDS ORDERED: METHYLENE BLUE 0.5% (5MG/ML) 10 ML AMP (PROVAYBLUE) As Ordered ONE (09:55)
[2019-12-27] MEDS ORDERED: METOCLOPRAMIDE INJ 10MG/2ML VIAL (J2765 PER 1) As Ordered ONE (10:44)
[2019-12-27] MEDS ORDERED: ONDANSETRON 4MG/2ML VIAL As Ordered ONE (10:44)
[2019-12-27] MEDS ORDERED: fentaNYL 100 MCG/2 ML INJECTION (J3010) As Ordered ONE (10:45)
[2019-12-27] MEDS ORDERED: MIDAZOLAM INJ 2MG/2ML VIAL (J2250 PER 1MG) As Ordered ONE (10:45)
[2019-12-27] MEDS ORDERED: LIDOCAINE 2% 100MG/5ML SDV (FOR ANES.) As Ordered ONE (15:06)
[2019-12-27] MEDS ORDERED: dexameTHASONE 4 MG/ML 1ML VIAL (J1100 PER 1MG) As Ordered ONE (15:06)
[2019-12-27] MEDS ORDERED: ePHEDrine SULFATE 25 MG/5 ML(5MG/ML) SYRINGE As Ordered ONE (15:06)
[2019-12-27] MEDS ORDERED: propofoL 200 MG/20 ML VIAL As Ordered ONE (15:06)
[2019-12-27] MEDS ORDERED: KETOROLAC 60MG 2ML VIAL As Ordered ONE (15:06)
[2019-12-27] MEDS ORDERED: ceFAZolin 1GM VIAL (J0690 PER 500MG) As Ordered ONE (15:13)
[2019-12-27] MEDS ORDERED: ONDANSETRON 4MG/2ML VIAL IV PRN (15:15)
[2019-12-27] MEDS ORDERED: PERCOCET 5MG/325MG TAB PO PRN (15:15)
[2019-12-27] MEDS ORDERED: ULTR50TA8 PO (15:15)
[2019-12-27] MEDS ORDERED: ceFAZolin SOD 2 GM in IV 1 EA IV ONE (15:15)
[2019-12-27] MEDS ORDERED: LR 1,000 ML IV SCH (15:15)
[2019-12-27] MEDS ORDERED: fentaNYL 100 MCG/2 ML INJECTION (J3010) IV PRN (15:15)
[2019-12-27] MEDS ORDERED: ceFAZolin 2 GM/D5W 50 ML IV BAG (J0690 PER 500MG) As Ordered ONE (15:20)
[2019-12-27 17:00] VITALS: BP 124/57
--- NOTE | 2019-12-27 19:37 | REP ---
LEFT BREAST LYMPHOSCINTIGRAPHY The procedure was performed under the direct supervision of Dr. Wolff. The images were reviewed with Dr. Wolff. Using topical anesthetic and sterile technique 1.002 mCi of technetium 99 filtered sulfur colloid was injected subdermally and eight fractionated periareolar injections. Images obtained 1 hour after injection show no axillary foci of uptake. Impression: Left breast lymphoscintigraphy. There is no axillary foci of uptake. Electronically Signed by MICKEY Hair 12/27/2019 04:55 P Electronically Signed by Robel Wolff MD 12/27/2019 07:28 P
--- NOTE | 2019-12-27 20:12 | ROOPDOC ---
[facility] Report Of Operation Report of Operation DATE OF PROCEDURE: 12/27/19 PREPROCEDURE DIAGNOSES: multifocal left breast cancer POSTPROCEDURE DIAGNOSES: multifocal left breast cancer PROCEDURE: Left breast lumpectomy of two separate sites, intraop wire placement of two sites, left sentinel lymph node biopsy, intraparenchymal injection of blue dye, left breast tissue rearrangement to close acquired defect post lumpectomies SURGEON: Anna Leon WATER PLUMBER: ANESTHESIA: general ESTIMATED BLOOD LOSS: Approximately 25 mL. COMPLICATIONS: none REMARKS: both clips are centrally located in the specimens, 12:00 specimen shows spiculated mass. Per radiology( Dr Wolff), margins look fine, 3 sentinel lymp node specimens were sent DESCRIPTION OF PROCEDURE: INDICATIONS: Ms. Donohue is a 59-year-old woman who found a suspicious mass on palpation of her left breast located at 12:00 5 CFN. Diagnostic imaging was done and confirmed presence of suspicious lesion. US guided biopsy was done and showed Invasive ductal carcinoma, hormone positive, Her2 negative. Preoperative MRI showed additional suspicious lesion at 3:00 in the left breast. Second look ultrasound failed to show the abnormality. MRI guided biopsy showed second focus of invasive ductal carcinoma with similar hormonal profile. Patient breast to tumor ratio allowed for breast conservation. She opted for double left lumpectomy with sentinel lymph node biopsy. She was medically cleared for surgery by her primary care doctor. Risks and possible complications of surgical procedure including bleeding, infection and injury to surrounding structures were explained to the patient and she wished to proceed. Consent was signed. My initials were placed on the operative site. Subcutaneous injection of 5000 units of heparin was done in Preop. The injection of radioactive tracer was done in radiology department preoperatively. Lymphoscintigraphy imaging was reviewed in preop and unfortunately did not show any intake in the axilla. Preop NeoProbe evaluation showed some weak signal in left axilla. DETAILS: Patient was taken to the operating room and placed on the operating room table. A sign in was called stating patients name, date of and the procedure to be done. Preoperative antibiotics were infused. Smooth induction of general anesthesia was done. Patients hands were extended on arm rests. Care was taken not to over extend the arms. Appropriate time out was done and patients name, date of , and the pro cedure to be done were confirmed. Procedure was started with injection of 3 ml of Methylene Blue dye mixed with 2 ml of normal saline. This was injected into Left upper outer quadrant since there was poor axillary tracking of the radionucleotide seen on l ymphoscintigraphy. The breast was massaged for a 5 minutes post injection. Next, we proceeded with left breast intraop wire localization at the lesions located at 12:00 and 3:00. Left breast was cleaned by me. Intraoperative ultrasound was used to confirm location of the Hydromark clips at 12:00 location and 3:00. Locations of the clips were marked on the skin as well. 21 G [employer] Breast Lesion Localization Needle was used to place 25 cm wire through the lesion located at 12:00 first. The second wire was placed at the 3:00 position localizing the Hydromark clip. No lesion is detected on sonography at 3:00 location. The images were captured confirming adequate placement of the localizing wires. Assistant Program Director assisted with the wire placement. After that, patients left breast and axilla were prepped and draped in the usual fashion. Care was taken not to displace the wires. Appropriate time out was done again prior second part of the procedure. Patients name, date of , and the procedure to be done were confirmed. I started the surgery with left axillary sentinel lymph node biopsy. Local anesthetic using 1% lidocaine and 0.25 % Marcaine 50/50 mix was injected at the planned incision site in the left axilla and the lower aspect of hair line. An incision was made with scalpel number 15. The sharp and blunt dissection was continued through the subcutaneous adipose tissue. Clavipectoral fascia was opened. Neoprobe was used again to try to re-assess the signal strength. There was some signal detected at deeper axilla. First sentinel lymph node was identified with the Neoprobe. This node was also blue. It was excised. The ex- vivo 10 second count was 4316. There was a cluster of blue nodes. This was excised and identified as a sentinel lymph node number two. There was no increased signal at this cluster. Upon examination of the deep axilla with Neoprobe, an area of high signal was again identified and third sentinel lymph node was identified and excised. This node was not blue. The ex-vivo 10 second count was 1506. The specimens were labeled with patients name and sent to pathology. No additional lymph nodes with high radioactive signal or blue color were identified. The 10 second count of the background was 8. Adequate hemostasis was assured. Additional local anesthetic was injected into surrounding tissues. Wound was irrigated. Clavipectoral fascia was closed with 3-0 Vicryl interrupted suture. Dermal layer was closed at the end of the case with 3-0 Monocryl and skin was closed with 4-0 Monocryl. Surgical glue was applied to the incision at the end of the procedure. Next, our attention was turned toward the left breast. Local anesthetic using 1% lidocaine and 0.25 % Marcaine 50/50 mix was injected at the site of planned periareolar incision. The incision was made with the scalpel. I started dissection toward lesion at 12:00. Subcutaneous skin flaps were raised and the guide wire was carefully pulled into the wound. Dissection was carries along the wire until the previously marked on the skin area of target lesion location was encountered. At this point, wider excision of the tissue surrounding the wire was done. The Hydromark clip was identified in the tissue with intraoperative hockey stick ultrasound probe. The end of the wire was identified with palpation. The lumpectomy specimen was carefully removed from the breast keeping its proper orientation and moved to the back table where margins were marked with the surgical inking kit following the standard colors recommendations. Specimen was then placed on the grid and placed in [employer] Specimen Imaging System. The image revealed the wire and the Hydromark in the specimen. The specimen was labeled with patients name and left lumpectomy 12:00 and sent to pathology. Upon completion of 12:00 lumpectomy, our attention was shifted toward 3:00 Hydromark with other focus of invasive carcinoma. Subcutaneous skin flaps were raised and the guide wire was carefully pulled into the wound. Dissection was carries along the wire until the previously marked on the skin area of Hydromark clip location was encountered. At this point, wider excision of the tissue surrounding the wire was done. The Hydromark clip was identified in the tissue with intraoperative hockey stick ultrasound probe. The end of the wire was identified with palpation. The lumpectomy specimen was carefully removed from the breast keeping its proper orientation and moved to the back table where margins were marked with the surgical inking kit following the standard colors recommendations. Specimen was then placed on the grid and placed in [employer] Specimen Imaging System. The image revealed the wire and the Hydromark in the specimen. The specimen was labeled with patients name and left lumpectomy 3:00 and sent to pathology. At this time, radiology department was called to aid with evaluation of excised specimen. No additional excision was recommended for the 12:[address] Wolff was unable to comment on margins for the 3:00 lesion because it was not mammographically detected. Both lumpectomy specimens had centrally located clips and wires. No additional margins are felt to be needed at this time especially since additional removal of the tissues may further enlarge acquired defect in breast tissue. Both lumpectomy cavities at 12:00 and 3:00 were thoroughly irrigated. Adequate hemostasis was assured. Additional local anesthetic was injected into surrounding tissues. Clips were placed to vandana the cavities. Each lumpectomy cavity was closed with 2-0 Vicryl. Tissue rearrangement was done to fill the acquired breast tissue defects. The dermis was closed with 3-0 Monocryl and skin was closed with 4-0 Monocryl. Surgical glue was placed over the incision. Patient emerged from the anesthesia without any problems. Fluffs were placed over the operative site and patients chest was wrapped snuggly in the F[employer] wrap. Sponge and instrument counts were done and were correct. Patient tolerated procedure well and was taken to recovery unit in stable condition. ANNA LEON DO Dec 27, 2019 20:12
--- NOTE | 2019-12-28 13:42 | REP ---
SPECIMEN RADIOGRAPHS: Patient underwent lumpectomy at two biopsy sites left breast. The first specimen contains a coiled biopsy clip as well as a localizing wire. The clip is slightly off center. The nearest margin of the specimen itself is 11 mm from the clip. The previous biopsy was performed with MR guidance, no mammographic abnormality was seen at this location on the prior mammogram 10/06/2019. A second specimen shows a biopsy clip within a spiculated nodule. The clip is in the spiculated nodule. There appears to be normal tissue surrounding the margins of the nodule. Localizing wire is present in the specimen as well. Electronically Signed by Roebl Wolff MD 12/29/2019 09:29 A
--- NOTE | 2019-12-28 15:40 | REP ---
ULTRASOUND GUIDANCE FOR NEEDLE LOCALIZATION OF TWO LEFT BREAST LESIONS: Ultrasound guidance was provided for Dr. Sandoval for localization of two prior biopsy sites. Localization was performed with a Kopan's wire at both sites, at the 12-o'clock and 3-o'clock positions. Electronically Signed by Robel Wolff MD 12/29/2019 09:35 A
== END 2019-12-27 17:22 | disposition home or self-care (01) ==
LOC: M SDC 07:35
PROVIDERS: ATTEND Surgery
DX: C50.912 Malignant neoplasm of unspecified site of left female breast (principal); Z17.0 Estrogen receptor positive status [ER+]; K21.9 Gastro-esophageal reflux disease without esophagitis; K44.9 Diaphragmatic hernia without obstruction or gangrene; F32.9 Major depressive disorder, single episode, unspecified; E78.2 Mixed hyperlipidemia; M54.5 Low back pain; Z87.891 Personal history of nicotine dependence; Z79.899 Other long term (current) drug therapy
CPT/HCPCS: 19125; 19126; 36415; 38525; 76942; 78195; 86850; 86900; 86901; 88307; 88342; A9541; J0690; J1100; J1644; J1885; J2250; J2405; J2765; J3010; Q9968

== ENCOUNTER → 2020-01-11 | Outpatient (CLI) | payer MEDICARE ==
[~2020-01-11] MED LIST changes: +ANAS1TAB2 PO; +CALC1TAB63 PO; +GLUCTAB6 PO; -HEPARIN SOD (PORCINE) 5000UNITS/ML VIAL (J1644 PER 1000UNITS) SQ ONE; -LIDOCAINE 1% MDV 20ML VIAL SQ PRN; -LR 1,000 ML IV ONE; +OMEG12003 PO; +SM M250T2 PO; +ULTR50TA8 PO; +VITA500C24 PO; -ceFAZolin SOD 2 GM in IV 1 EA IV ONE
== END ==
LOC: M ONCR 13:06
PROVIDERS: ATTEND Radiology Radiation Oncology
DX: C50.412 Malignant neoplasm of upper-outer quadrant of left female breast (principal)

== ENCOUNTER → 2020-01-19 | Outpatient (CLI) | payer MEDICARE, MEDICAID ==
[2020-02-18 13:32] LABS: HEMATOCRIT 44.3 % (36.0-47.0); HEMOGLOBIN 14.1 g/dl (12.0-15.5); MEAN CORPUSCULAR HEMOGLOBIN 29.9 pg (27.0-33.0); MEAN CORPUSCULAR HGB CONC 31.8 g/dl (32.0-36.5); MEAN CORPUSCULAR VOLUME 93.9 fl (80.0-96.0); PLATELET COUNT, AUTOMATED 321 10^3/uL (150-450); RED BLOOD COUNT 4.72 10^6/uL (4.00-5.40); WHITE BLOOD COUNT 6.4 10^3/uL (4.0-10.0)
[2020-02-18 13:35] LABS: ATYPICAL LYMPH 5 % (0-5); BASOPHILS 2 % (0-1); EOSINOPHILS 2 % (0-3); LYMPHOCYTES 23 % (16-44); MONOCYTES 7 % (0-5); NEUTROPHILS 61 % (28-66); PLATELET ESTIMATE NORMAL (NORMAL)
[2020-03-05 08:36] LABS: ALT/SGPT 39 U/L (12-78); BILIRUBIN,TOTAL 0.4 MG/DL (0.2-1.0); BLOOD UREA NITROGEN 10 MG/DL (7-18); C REACTIVE PROTEIN QUANTITATIV 0.41 MG/DL (0.00-0.30); CARBON DIOXIDE LEVEL 25 MEQ/L (21-32); CHLORIDE LEVEL 110 MEQ/L (98-107); CREATININE FOR GFR 0.73 MG/DL (0.55-1.30); GLOMERULAR FILTRATION RATE > 60.0 (>51); GLUCOSE, FASTING 93 MG/DL (70-100); SODIUM LEVEL 139 MEQ/L (136-145); TOTAL PROTEIN 7.1 GM/DL (6.4-8.2)
== END ==
LOC: M LAB 14:07
PROVIDERS: ATTEND Internal Medicine Gastroenterology
DX: Z12.11 Encounter for screening for malignant neoplasm of colon (principal)

== ENCOUNTER 2020-01-30 12:25 | Day surgery (SDC) | payer MEDICARE ==
[~2020-01-30 12:25] MED LIST changes: -ANAS1TAB2 PO; -CALC1TAB63 PO; -GLUCTAB6 PO
--- NOTE | 2020-02-29 11:28 | ROOR ---
Patient Name: Gabby Donohue Procedure Date: 01/30/2020 12:54 PM Date of : 1960 Age: 59 Room: [facility] Gender: Female Note Status: Acid Concentrator Override Procedure: Total Colonoscopy to Cecum + Bx. To r/o Microscopic Colitis Indications: Change in bowel habits Providers: Gurmeet Cosme MD Referring MD: Lora MATHUR NP Requesting Provider: Medicines: Monitored Anesthesia Care Complications: No immediate complications. Procedure: Pre-Anesthesia Assessment: - The heart rate, respiratory rate, oxygen saturations, blood pressure, adequacy of pulmonary ventilation, and response to care were monitored throughout the procedure. The Colonoscope was introduced through the anus and advanced to the cecum, identified by appendiceal orifice and ileocecal valve. The colonoscopy was performed without difficulty. The patient tolerated the procedure well. The quality of the bowel preparation was excellent. Findings: The perianal and digital rectal examinations were normal. Non-bleeding internal hemorrhoids were found during retroflexion. The hemorrhoids were small and Grade I (internal hemorrhoids that do not prolapse). No other significant abnormalities were identified in a careful examination of the remainder of the colon. Biopsies for histology were taken with a cold forceps from the cecum, ascending colon, transverse colon and descending colon for evaluation of microscopic colitis. A diminutive polyp was found in the rectum. The polyp was sessile. The polyp was removed with a cold biopsy forceps. Resection and retrieval were complete. The exam was otherwise without abnormality on direct and retroflexion views. Impression: - Non-bleeding internal hemorrhoids. - One diminutive polyp in the rectum, removed with a cold biopsy forceps. Resected and retrieved. - The examination was otherwise normal on direct and retroflexion views. - Biopsies were taken with a cold forceps from the cecum, ascending colon, transverse colon and descending colon for evaluation of microscopic colitis. - The exam was otherwise normal to the cecum. Recommendation: - Patient has a contact number available for emergencies. The signs and symptoms of potential delayed complications were discussed with the patient. Return to normal activities tomorrow. Written discharge instructions were provided to the patient. - High fiber diet. - Discharge patient to home. - Continue present medications. - Await pathology results. - Telephone GI clinic for pathology results in 1 week. - Return to referring physician. - The findings and recommendations were discussed with the patient. Gurmeet Cosme MD Gurmeet Cosme MD 01/30/2020 1:19:11 PM Number of Addenda: 0 Note Initiated On: 01/30/2020 12:54 PM Estimated Blood Loss: Estimated blood loss: none.
[2020-03-28] MEDS ORDERED: ANAS1TAB2 PO (13:57)
[2020-03-28] MEDS ORDERED: GLUCTAB6 PO (13:59)
[2020-03-28] MEDS ORDERED: CALC1TAB63 PO (14:00)
== END 2020-01-30 13:42 | disposition home or self-care (01) ==
LOC: M SDC 12:25
PROVIDERS: ATTEND Internal Medicine Gastroenterology
DX: K62.1 Rectal polyp (principal); K63.5 Polyp of colon; K64.0 First degree hemorrhoids; R19.4 Change in bowel habit; Z87.891 Personal history of nicotine dependence

== ENCOUNTER → 2020-02-20 | Outpatient (RCR) | payer MEDICARE ==
[~2020-02-20] MED LIST changes: +ANAS1TAB2 PO; +CALC1TAB63 PO; +GLUCTAB6 PO
== END ==
LOC: M ONCR 01-31 10:05
PROVIDERS: ATTEND General Practice
DX: C50.412 Malignant neoplasm of upper-outer quadrant of left female breast (principal)

== ENCOUNTER 2020-03-06 10:03 | Outpatient (RCR) | payer MEDICARE ==
[~2020-03-06 10:03] MED LIST changes: -ANAS1TAB2 PO; -CALC1TAB63 PO; -GLUCTAB6 PO
[2020-03-28] MEDS ORDERED: ANAS1TAB2 PO (13:57)
[2020-03-28] MEDS ORDERED: GLUCTAB6 PO (13:59)
[2020-03-28] MEDS ORDERED: CALC1TAB63 PO (14:00)
== END 2020-03-21 ==
LOC: M ONCR 10:03
PROVIDERS: ATTEND General Practice
DX: C50.412 Malignant neoplasm of upper-outer quadrant of left female breast (principal)

== ENCOUNTER → 2020-05-10 | Outpatient (CLI) | payer MEDICARE, MEDICAID ==
[~2020-05-10] MED LIST changes: +ANAS1TAB2 PO; +CALC1TAB63 PO; +GLUCTAB6 PO
--- NOTE | 2020-05-10 16:43 | DEXAMM ---
INDICATION: HX BREAST CA,ON AROMATASE INHIBITOR. COMPARISON: None. TECHNIQUE: Bone density was measured using dual-energy x-ray absorptiometry (DEXA). FINDINGS: AP SPINE L1-L4 BMD 1.188 g/cm2 Young Adult T-Score -0.1 Age Matched Z-Score 1.0. LT FEMUR, TOTAL BMD 0.868 g/cm2 Young Adult T-Score -1.1 Age Matched Z-Score -0.3. LT NECK BMD 0.787 g/cm2 Young Adult T-Score -1.8 Age Matched Z-Score -0.6. RT FEMUR, TOTAL BMD 0.846 g/cm2 Young Adult T-Score -1.3 Age Matched Z-Score -0.4. RT NECK BMD 0.816 g/cm2 Young Adult T-Score -1.6 Age Matched Z-Score -0.4. IMPRESSION: There is normal bone density of the spine. There is low bone density of the left hip. There is low bone density of the right hip. FOLLOW-UP: Recommendation for the next bone density exam: 2 years. <Electronically signed by Robel Wolff > 05/10/20 [id number]
== END ==
LOC: M WHC 12:55
PROVIDERS: ATTEND Internal Medicine Hematology & Oncology
DX: Z51.81 Encounter for therapeutic drug level monitoring (principal); Z79.899 Other long term (current) drug therapy; Z85.3 Personal history of malignant neoplasm of breast; M85.851 Other specified disorders of bone density and structure, right thigh; M85.852 Other specified disorders of bone density and structure, left thigh

== ENCOUNTER → 2020-06-29 | Outpatient (CLI) | payer MEDICARE, MEDICAID ==
[~2020-06-29] MED LIST changes: +ALEN70TA74 PO
--- NOTE | 2020-06-29 09:34 | REP ---
INDICATION: SCR RIGHT MAMMO/LEFT BREAST CA-NOT DUE UNTIL 10/2020. COMPARISON: 03/21/2019 as well as other prior exams. TECHNIQUE: MLO and CC views of the right breast are performed tomosynthesis. FINDINGS: Mild scattered fibroglandular tissue in the right breast is unchanged. No new mass or architectural distortion is seen. Stable subcentimeter lymph node is seen in the region of the right axillary tail. The Volpara volumetric breast density pattern is A. IMPRESSION: BIRADS/ACR category 1-mammogram right breast. No new mass or clustered microcalcifications. This mammogram was interpreted with the aid of an FDA-approved computer-aided detection system. The patient states she had a clinical breast exam in June 2011. The patient letter being requested is M1. RECOMMENDATION: Recommend follow-up mammogram of the left breast November 2020. <Electronically signed by Robel Wolff > 06/29/20 [id number]
--- NOTE | 2020-06-29 12:26 | REP ---
INDICATION: N63.20 LEFT BREAST MASS/6 MO F/U/L BREAST CA. COMPARISON: Ultrasounds 11/07/2019 and 10/06/2019, breast MRI 10/26/2019, mammograms 10/06/2019 and 10/18/2019. TECHNIQUE: Real-time sonographic evaluation of left breast performed. FINDINGS: At the site of a reported palpable abnormality 1 o'clock there is a subcutaneous lobulated area of fluid with internal septations measuring 1.8 x 1.5 x 0.5 cm. In the adjacent 2 o'clock region at the site of a 2nd reported palpable lump there is a rounded structure measuring 1.4 x 1.1 x 0.8 cm. It is isoechoic to underlying heterogeneous fibroglandular tissue. IMPRESSION: BIRADS/ACR category 3 probably benign. At 1 o'clock subcutaneous lobulated septated cystic fluid measures 1.8 x 1.5 x 0.5 cm. This may represent post biopsy or postsurgical fluid. At 2 o'clock a rounded structure isoechoic to adjacent heterogeneous fibroglandular tissue measures 1.4 x 1.1 x 0.8 cm. This is probably benign. Recommend further evaluation with breast MRI or ultrasound-guided biopsy. RECOMMENDATION: Recommend further evaluation of isoechoic nodular structure 2 o'clock left breast with breast MRI or ultrasound-guided biopsy. <Electronically signed by Robel Wolff > 06/29/20 [id number]
== END ==
LOC: M WHC 08:30
PROVIDERS: ATTEND Surgery
DX: N63.22 Unspecified lump in the left breast, upper inner quadrant (principal)

== ENCOUNTER → 2020-07-13 | Outpatient (REF) | payer MEDICARE ==
[~2020-07-13] MED LIST changes: -ALEN70TA74 PO; +ALEN70TA82 PO
[2020-07-13 13:19] LABS: BLOOD UREA NITROGEN 17 MG/DL (7-18); CALCIUM LEVEL 9.9 MG/DL (8.5-10.1); CARBON DIOXIDE LEVEL 25 MEQ/L (21-32); CHLORIDE LEVEL 106 MEQ/L (98-107); CREATININE FOR GFR 0.92 MG/DL (0.55-1.30); GLOMERULAR FILTRATION RATE > 60.0 (>51); GLUCOSE, FASTING 120 MG/DL (70-100); POTASSIUM SERUM 4.3 MEQ/L (3.5-5.1); SODIUM LEVEL 141 MEQ/L (136-145)
== END ==
LOC: M PLALAB 09:33
PROVIDERS: ATTEND Surgery
DX: F41.9 Anxiety disorder, unspecified (principal)

== ENCOUNTER → 2020-07-19 | Outpatient (CLI) | payer MEDICARE, MEDICAID ==
[~2020-07-19] MED LIST changes: +PROHANCE 279.3MG/ML 15ML VIAL As Ordered ONE
--- NOTE | 2020-07-19 17:59 | REP ---
INDICATION: H/O BREAST CA W/ LT BREAST MASS. Multifocal left breast cancer, now new left breast mass with BI-RADS category 3 on ultrasound. ER positive status. Status post chemo and radiation therapy. COMPARISON: Comparison left breast sonography 29 June 2020. Comparison unilateral right breast mammography same date. Comparison breast MRI study October 26, 2019. TECHNIQUE: Three Mariza MRI imaging was performed with a dedicated breast coil. Axial, coronal, and sagittal T1 and T2 weighted scans were obtained with and without fat saturation in the usual fashion. The study includes dynamically acquired post gadolinium-enhanced imaging with image subtraction. Maximum intensity projection and multi planar reformation imaging is included as well. This study is interpreted with the aid of Triggit, an FDA approved computer aided detection (CAD) software program, on a dedicated breast MRI workstation. The gadolinium enhancement dose is 13 mL of intravenous ProHance. FINDINGS: There are scattered fibroglandular elements of bilaterally. There are multiple focal magnetic field susceptibility artifacts now present in the left breast consistent with multiple fiducial markers are biopsy markers. There are total of approximately 8 of these focal magnetic field susceptibility artifacts. There is some mild disc diffuse stromal edema in the left breast consistent with post radiation change. There is no evidence of axillary lymphadenopathy on either side. Pre contrast images show no suspicious morphologic abnormality. The previously noted heterogeneously enhancing spiculated mass in the left superior breast middle 3rd is no longer apparent. dynamically acquired post contrast images demonstrate a heterogeneous 1 cm irregular area of enhancement and washout in the superolateral aspect of the left breast middle 3rd in the area where the 2nd lesion was located October 26, 2019. This is immediately adjacent to several magnetic field susceptibility artifacts consistent with new Home markers biopsy markers. This is at approximately the 2 o'clock position in the left breast and may correspond to the nodular changes seen at 2 o'clock on recent ultrasound. No other suspicious abnormality is observed in the left breast. IMPRESSION: There is a 1 cm area of enhancement with irregular margins in the upper outer quadrant of the left breast superficially at approximately 2 o'clock adjacent to needle biopsy marker clips. I cannot exclude residual malignancy. This appears to correspond in location to the recent ultrasound findings. Consider repeat ultrasound-guided needle biopsy procedure. BI-RADS category is felt to be best assigned as category 4 suspicious findings. <Electronically signed by Javi Lopez > 07/19/20 [id number]
== END ==
LOC: M RAD 13:04
PROVIDERS: ATTEND Surgery
DX: C50.812 Malignant neoplasm of overlapping sites of left female breast (principal); Z17.0 Estrogen receptor positive status [ER+]; Z92.21 Personal history of antineoplastic chemotherapy; Z92.3 Personal history of irradiation; N63.21 Unspecified lump in the left breast, upper outer quadrant
CPT/HCPCS: A9576; C8908

== ENCOUNTER → 2020-07-25 | Outpatient (CLI) | payer MEDICARE, MEDICAID ==
[~2020-07-25] MED LIST changes: -PROHANCE 279.3MG/ML 15ML VIAL As Ordered ONE
[2020-07-25 12:24] VITALS: BP 128/72
--- NOTE | 2020-07-25 13:09 | REP ---
INDICATION: N63.20 LT BREST MASS, POST US GUIDED BIOPSY. COMPARISON: Comparison is made with today's ultrasound imaging of the left breast and ultrasound from 29 June 2020. Comparison left breast mammography December 08, 2019. TECHNIQUE: The craniocaudal and true mediolateral views of the left breast are obtained. This mammogram was interpreted with the aid of an FDA-approved computer-aided detection system. FINDINGS: There are multiple surgical clips scattered in the upper outer quadrant of the left breast. There are 2 needle biopsy marker clips, HydroMARK type in the left breast. One of these was present previously and the other is more superficial and slightly posterior with respect to the other. A central marker clip observed on December 08, 2019 has been resected in the interval. IMPRESSION: Needle biopsy marker clip superficially in the upper outer quadrant of the left breast. No hematoma is seen. RECOMMENDATION: None. <Electronically signed by Javi Lopez > 07/25/20 0430
--- NOTE | 2020-07-25 14:17 | REP ---
INDICATION: N63.20 LT BREAST MASS,US GUIDED BIOPSY. COMPARISON: Comparison sonography June 29, 2020. Comparison MRI study July 19, 2020. . TECHNIQUE: Sonographic guidance. FINDINGS: Sonographic guidance is provided to Dr. Sandoval performed ultrasound-guided needle biopsy and marker clip placement procedure at 2 sites in the left breast. IMPRESSION: Sonographic guidance. Procedural imaging. <Electronically signed by Javi Lopez > 07/25/20 0187
--- NOTE | 2020-07-28 23:26 | ROOPDOC ---
[facility] Report Of Operation Report of Operation DATE OF PROCEDURE: 07/25/20 DIAGNOSIS: left breast palpable masses at 1:00 and 2:00 PROCEDURE: Ultrasound guided attempted aspiration of the left breast 1:00 mass, followed by ultrasound guided biopsy of 1:00 and 2:00 masses in left breast with clips placement SURGEON: Anna Leon BLOOD LOSS: minimal COMPLICATIONS: none Lidocaine 1% LOT [id number] Expiration 09/2023 Sodium Bicarbonate 4% LOT [id number] Expiration 09/2020 LEFT 2:00 BIOPSY Hydromark clip LOT [id number] Expiration 03/2023 SHAPE 3 Bx device: BARD [id number] x10 cm LOT [id number] Expiration 04/2023 LEFT 1:00 BIOPSY Hydromark clip LOT [id number] Expiration 03/2025 SHAPE 4 Bx device: BARD [id number] x10 cm LOT [id number] Expiration 04/2023 Informed consent was obtained. The most common risk and possible complications including bleeding, hematoma, bruising, infection, injury to surrounding structures were explained to the patient and the patient expressed understanding. Patient was placed on the bed in the supine position. Appropriate time out was done stating patients name, date of , and the procedure to be performed. The left breast was prepped and draped in the usual fashion. The ultrasound and palpation were used to confirm the location of the palpable lesions and their sonographic correlates at in the left breast at 2:00 and 1:00. Procedure was started targeting the 2:00 lesion. Plain Lidocaine 1% and 4% sodium bicarbonate 10:1 mix was used to anesthetize the skin, the biopsy site and tissues along the anticipated biopsy tract. Small skin incision was made with blade number 11. BARD Marquee 14G cannula with introducer ([id number]) was inserted through the incision and advanced under the ultrasound guidance to position immediately adjacent to the lesion. Next, the introducer was removed and BARD Marquee 14G biopsy device was places in the cannula. Pre-biopsy imaging, and post-biopsy imaging were captured. Five good core biopsies were taken at various levels of the lesion. Specimen was placed in formaldehyde, labeled with appropriate biopsy site and patients name, and sent to pathology for evaluation. Next, the biopsy device was withdrawn and a clip introducer was inserted into the biopsy site via the cannula. The SHAPE 3 Hydromark clip was deployed under sonographic guidance. Post-clip placement image was captured. Manual pressure over the biopsy cavity and tract was held after the clip introducer was withdrawn. No bleeding was noted upon removal of the pressure. At this time, our attention was shifted toward the 1:00 lesion. Plain Lidocaine 1% and 4% sodium bicarbonate 10:1 mix was used to anesthetize the skin, the tissue surrounding the lesion and tissues along the anticipated a spiration/ biopsy tract. Previously made incision was used to introduce the 25 G spinal needle. An attempted aspiration did not return any fluid or collapse of the hypoechoic target. At this point we proceeded with the biopsy of this area. BARD Marquee 14G cannula with introducer ([id number]) was inserted through the incision and advanced under the ultrasound guidance to position immediately adjacent to the lesion. Next, the introducer was removed and BARD Marquee 14G biopsy device was places in the cannula. Pre-biopsy imaging, and post-biopsy imaging were captured. Three good core biopsies were taken at various levels of the lesion. Specimen was placed in formaldehyde, labeled with appropriate biopsy site and patients name, and sent to pathology for evaluation. Next, the biopsy device was withdrawn and a clip introducer was inserted into the biopsy site via the cannula. The SHAPE 4 Hydromark clip was deployed under sonographic guidance. Post-clip placement image was captured. Manual pressure over the biopsy cavity and tract was held after the clip introducer was withdrawn. No bleeding was noted upon removal of the pressure. Post-biopsy mammogram of the left breast was obtained and showed clips in expected position. Postprocedural dressing was placed. Patient tolerated procedure well. Discharge instructions were discussed with the patient and the patient expressed understanding. ANNA LEON DO Jul 28, 2020 23:26
== END ==
LOC: M WHCPRO 10:38
PROVIDERS: ATTEND Surgery
DX: N63.21 Unspecified lump in the left breast, upper outer quadrant (principal)

== ENCOUNTER → 2020-09-05 | Outpatient (CLI) | payer MEDICARE ==
[~2020-09-05] MED LIST changes: +MULT-90 PO
--- NOTE | 2020-09-05 12:44 | RADONC ---
Radiation Oncology Hx/FUP Radiation Oncology Hx/FUP Date of Service: Sep 05, 2020 Pt Identifier Gabby Donohue is a 60 year old female seen for a followup visit today at the department of radiation oncology for a history of left breast cancer , pT1cN0(sn)M0 ER/VA+ HER2- IDC Grade 2. She underwent lumpectomy with Dr. 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 She completed prone adjuvant RT 40 Gy in 15 fractions followed by 10 Gy in 5 fraction tumor bed boost completed 03/06/20. She continues on AI. Diagnosis/Treatment History Oncologic History She felt a lump in the left breast in October 2019, mammogram 10/26/19 showed a lesion at 12:00, biopsy confirmed IDC. She underwent an EOD MRI on 10/26/19 which showed a second focus at 15:00. The second focus was biopsied on 12/08/19 which showed IDC. She underwent lumpectomy with Dr. Sandoval on 12/27/19, final pathology showed 2 foci of IDC in a background of DCIS, Gr 2, no LVSI, margins widely negative [id number](sn)M0. 3 SLN sampled were negative. 02/06/20-03/06/20 adjuvant WBI 40 Gy in 15 fractions with 10 Gy in 5 fraction tumor bed boost treated prone. Recent data: 07/19/20 MRI 1cm enhancing area in the left upper outer breast 07/25/20 Biopsy: Negative Survivorship: Breast table: Test Due Next Last result Notes TSH, T4* 6m post-tx, then q1y N/A Carotid US* q10 y post-tx N/A Smoking cessation Assess annually if applicable N/A Screening CT chest q1y if eligible per USPSTF N/A Mammograms Min q1y, if breast conservation 2021 MRI 06/2020 L breast lesion, biopsied negative CBC,CMP, Lipids q1y 2021 DEXA q2y if on AI 2021 On alendronate Interval History Feels well overall, tolerating AI, has medical oncology follow up this week. No breast complaints. No pain or swelling. Appetite good and weight stable. Current Therapy Anastrozole Stage Left breast cancer pT1cN0(sn)M0 ER/VA+ HER2- IDC Grade 2 stage IA Social History: 20 pack year former smoker quit 2009 Non-drinker Allergies / Meds Allergies: Coded Allergies: No Known Allergies (Unverified , 12/27/19) Home Meds Active Scripts Anastrozole (Anastrozole) 1 Mg Tablet, 1 TAB PO DAILY for 30 Days, #30 TAB 2 Refills Prov:BILL CANNON MD 07/18/20 Alendronate Sodium (Alendronate Sodium) 70 Mg Tablet, 1 TAB PO Q7D for 90 Days, #12 TAB 3 Refills in the morning, at least 30 minutes before the first food, beverage, or medication of the day Prov:DAVID PAN MD 05/23/20 Calcium Carbonate/Vitamin D3 (Calcium 600-Vit D3 400 Tablet) 1 Each Tablet, 1 TAB PO BID for 30 Days, #60 TAB Prov:DAVID PAN MD 03/28/20 Gluc Laughlin/Chondro Laughlin A/Vit C/Mn (Glucosamine Chondroitin Tab) 1 Each Tablet, 1 TAB PO TID for 30 Days, #90 TAB Prov:DAVID PAN MD 03/28/20 Reported Medications Magnesium (Magnesium) 250 Mg Tablet, 250 MG PO DAILY for 30 Days, #30 TAB 01/10/20 Ascorbic Acid (Vitamin C) 500 Mg Capsule, 500 MG PO DAILY for 28 Days, #28 CAP 01/10/20 Vitamin B Complex (Vitamin B Complex) 1 Each Tablet, 1 TAB PO DAILY, TAB 12/19/19 Cholecalciferol (Vitamin D3) (Vitamin D3) 1,250 Mcg Capsule, 1250 MCG PO QWEEK, CAP 12/19/19 Fluoxetine Hcl (Fluoxetine HCl) 40 Mg Capsule, 40 MG PO DAILY, CAP 12/19/19 Multivitamin (Multivitamins) 1 Each Capsule, 1 CAP PO DAILY, CAP 11/29/19 Review of Systems Review of Systems Constitutional: Denies: Fatigue, Weight Loss Eyes: Denies: Pain HEENT: Denies: Head Aches Breast: Denies: New Breast Lumps / Masses, Nipple Retraction, Nipple Discharge, Breast Skin Changes, Breast Pain or Tenderness Pulmonary: Denies: Dyspnea Cardiovascular: Denies: Chest Pain Gastrointestinal: Denies: Abdominal Pain Musculoskeletal: Denies: Neck pain, Arm pain Neurological: Denies: Weakness, Numbness Psych: Reports: Mood Normal Physical Examination Vital Signs Wt 155 lbs T 98 P 70 RR 18 BP 130/68 O2 96% Pain 0 Fatigue 0 General Exam: Positive: Alert, Cooperative, No Acute Distress Eye Exam: Positive: PERRLA, EOMI ENT EXAM: Positive: Atraumatic Neck Exam: Positive: Supple; Negative: Lymphadenopathy Chest Exam: Positive: Clear to auscultation Heart Exam: Positive: Rate Normal Breast Exam: Positive: Symmetric Bilaterally, Other Breast Findings (BL ptotic, no skin lesions or telangiectasias. No palpable lesions BL breast and axillae); Negative: Lumps or Masses, Nipple Retraction, Nipple Discharge, Skin Changes Abdomen Exam: Positive: Soft Extremity Exam: Negative: Edema Skin Exam: Positive: Nl turgor and temperature Neuro Exam: Positive: Normal Gait, Normal Speech, Cranial Nerves 3-12 NL Psych Exam: Positive: Mental status NL Diagnostic and Laboratory Diagnostic Review Radiologic images, relevant labs and pathology reports were personally reviewed and discussed with Ms. Donohue. Assessment and Plan Impression Assessment Ms. Donohue is a 60 year old female with a history of left breast cancer , pT1cN0(sn)M0 ER/VA+ HER2- IDC Grade 2. She underwent lumpectomy with Dr. 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 She completed prone adjuvant RT 40 Gy in 15 fractions followed by 10 Gy in 5 fraction tumor bed boost completed 03/06/20. She continues on AI. She is doing well and tolerating AI. She had a suspicious lesion on MRI biopsied in June and path was negative. She has scheduled mammographic follow up, she also has upcoming medical oncology follow up (this week). She has no post RT sequelae evident on exam. She has no palpable abnormalities either. I will see her again in 6 months time in effort to split follow up with medical oncology. Performance Status ECOG 0 Plan Follow up in 6 months Ms. Donohue was encouraged to call with questions or concerns in the interim period. Billing Statement Total time of [20] minutes was spent preparing for the visit [1], obtaining HPI [3], examining the patient [3], reviewing diagnostic tests [2], discussing management options [3], coordinating care [0], and writing this note [8]. ALFA ESTRELLA MD Sep 05, 2020 12:44
== END ==
LOC: M ONCR 10:57
PROVIDERS: ATTEND General Practice
DX: C50.412 Malignant neoplasm of upper-outer quadrant of left female breast (principal)

== ENCOUNTER → 2021-01-08 | Outpatient (CLI) | payer MEDICARE, MEDICAID ==
[~2021-01-08] MED LIST changes: -OLAN15TA PO; +OLAN15TA13 PO; -OLAN7.5T PO; +OLAN7.5T8 PO
--- NOTE | 2021-01-08 12:31 | REP ---
INDICATION: LEFT BREAST CA/6 MO POST OP. Patient is also status post benign ultrasound-guided needle biopsies in the left breast. Post lumpectomy and radiation therapy. COMPARISON: Comparison mammography July 25, 2020, and October 06, 2019. TECHNIQUE: Craniocaudal and mediolateral oblique views of the left breast are obtained. 3D tomography is carried out. Targeted left breast sonography is performed. This mammogram was interpreted with the aid of an FDA-approved computer-aided detection system. FINDINGS: Scattered fibroglandular elements are noted primarily in the upper outer quadrant in a pattern unchanged from the July 25, 2020 study. There are multiple surgical clips in the upper outer quadrant of the left breast post excisional biopsy. There is no evidence of new mass or adenopathy. No worrisome skin changes seen. No significant contour deformity is seen. No microcalcification or spiculation is seen. No suspicious mammographic finding. The Volpara volumetric breast density pattern is b. Targeted ultrasound: Targeted left breast ultrasound is performed as requested by the referring provider. Comparison sonography is reviewed from July 25, 2020 and June 29, 2020. In the left breast, 1 to 2 o'clock position there are 2 separate HydroMARK marker clip device is. A hypoechoic areas seen adjacent to 1 of these consistent with some postoperative scarring. There is a 1.1 x 0.7 x 1.1 cm hypoechoic area with well-defined back wall and enhanced through transmission consistent with a small area of fat necrosis. This has low K PA number on elastography. Also noted is the previously noted and recently biopsied oval-shaped cyst in the 1 o'clock position unchanged. Marker clip adjacent to this. IMPRESSION: BIRADS/ACR category 2 benign left breast mammographic and sonographic findings. RECOMMENDATION: Repeat screening mammography recommended 1 year (for women over 40). The patient letter being requested is M2. <Electronically signed by Javi Lopez > 01/08/21 [id number]
== END ==
LOC: M WHC 08:37
PROVIDERS: ATTEND Surgery
DX: N63.20 Unspecified lump in the left breast, unspecified quadrant (principal); Z85.3 Personal history of malignant neoplasm of breast; N60.02 Solitary cyst of left breast
CPT/HCPCS: 76642; 77065; G0279

== ENCOUNTER → 2021-03-06 | Outpatient (CLI) | payer MEDICARE, MEDICAID ==
--- NOTE | 2021-03-06 12:23 | RADONC ---
Radiation Oncology Hx/FUP Radiation Oncology Hx/FUP Date of Service: Mar 06, 2021 Pt Identifier Gabby Donohue is a 60 year old female seen for a followup visit today at the department of radiation oncology for a history of left breast cancer , pT1cN0(sn)M0 ER/AK+ HER2- IDC Grade 2. She underwent lumpectomy with Dr. 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 She completed prone adjuvant RT 40 Gy in 15 fractions followed by 10 Gy in 5 fraction tumor bed boost completed 03/06/20. She was started on Anastrozole but discontinued after 1 month due to joint pains and hair thinning. Diagnosis/Treatment History Oncologic History She felt a lump in the left breast in October 2019, mammogram 10/26/19 showed a lesion at 12:00, biopsy confirmed IDC. She underwent an EOD MRI on 10/26/19 which showed a second focus at 15:00. The second focus was biopsied on 12/08/19 which showed IDC. She underwent lumpectomy with Dr. Sandoval on 12/27/19, final pathology showed 2 foci of IDC in a background of DCIS, Gr 2, no LVSI, margins widely negative epM1cD8(sn)M0. 3 SLN sampled were negative. 02/06/20-03/06/20 adjuvant WBI 40 Gy in 15 fractions with 10 Gy in 5 fraction tumor bed boost treated prone. Recent data: 07/19/20 MRI 1cm enhancing area in the left upper outer breast 07/25/20 Biopsy: Negative 01/08/21 Mammograms: Negative BIRADS 2 Survivorship: Test Due Next Last result Notes TSH, T4* 6m post-tx, then q1y N/A Carotid US* q10 y post-tx N/A Smoking cessation Assess annually if applicable N/A Screening CT chest q1y if eligible per USPSTF N/A Mammograms Min q1y, if breast conservation 2021 Mammograms 01/08/21 BIRAD2 negative. MRI 06/2020 L breast lesion, biopsied negative CBC,CMP, Lipids q1y 2021 DEXA q2y if on AI 2021 On alendronate Interval History Gabby reports she feels well. Missed some appointments recently due to lack of insurance. Now has insurance. She reports she has noticed a new lump in the left upper breast over the last month, is firm, non-tender. She has no skin complaints. No pain or swelling in the LUE. Appetite good and weight stable. Current Therapy Surveillance Stage Left breast cancer pT1cN0(sn)M0 ER/AK+ HER2- IDC Grade 2 stage IA Social History: 20 pack year former smoker quit 2009 Non-drinker Allergies / Meds Allergies: Coded Allergies: No Known Allergies (Unverified , 12/27/19) Home Meds Active Scripts Alendronate Sodium (Alendronate Sodium) 70 Mg Tablet, 1 TAB PO Q7D for 90 Days, #12 TAB 3 Refills in the morning, at least 30 minutes before the first food, beverage, or medication of the day Prov:DAVID PAN MD 05/23/20 Calcium Carbonate/Vitamin D3 (Calcium 600-Vit D3 400 Tablet) 1 Each Tablet, 1 TAB PO BID for 30 Days, #60 TAB Prov:DAVID PAN MD 03/28/20 Gluc Laughlin/Chondro Laughlin A/Vit C/Mn (Glucosamine Chondroitin Tab) 1 Each Tablet, 1 TAB PO TID for 30 Days, #90 TAB Prov:DAVID PAN MD 03/28/20 Reported Medications Multivitamin (Multivitamin) 1 Each Tablet, 1 EACH PO, TAB 09/07/20 Magnesium (Magnesium) 250 Mg Tablet, 250 MG PO DAILY for 30 Days, #30 TAB 01/10/20 Ascorbic Acid (Vitamin C) 500 Mg Capsule, 500 MG PO DAILY for 28 Days, #28 CAP 01/10/20 Vitamin B Complex (Vitamin B Complex) 1 Each Tablet, 1 TAB PO DAILY, TAB 12/19/19 Cholecalciferol (Vitamin D3) (Vitamin D3) 1,250 Mcg Capsule, 1250 MCG PO QWEEK, CAP 12/19/19 Fluoxetine Hcl (Fluoxetine HCl) 40 Mg Capsule, 40 MG PO DAILY, CAP 12/19/19 Discontinued Scripts Anastrozole (Anastrozole) 1 Mg Tablet, 1 TAB PO DAILY for 30 Days, #30 TAB 2 Refills Prov:RAYMOND ALFONSO MDFRCP 10/22/20 Review of Systems Review of Systems Constitutional: Denies: Fever, Weight Loss Eyes: Denies: Pain HEENT: Denies: Head Aches Skin: Denies: Rash Breast: Reports: New Breast Lumps / Masses; Denies: Nipple Discharge, Breast Skin Changes, Breast Pain or Tenderness Pulmonary: Denies: Dyspnea, Cough Cardiovascular: Denies: Chest Pain, Edema Gastrointestinal: Denies: Abdominal Pain Hematologic: Denies: Bruising Endocrine: Denies: Cold Intolerance Musculoskeletal: Denies: Neck pain, Back pain Neurological: Denies: Weakness, Numbness Psych: Reports: Mood Normal Physical Examination Vital Signs Wt 158 lbs T 96.4 P 80 RR 16 BP 155/78 O2 100% Pain 0 Fatigue 1 General Exam: Alert, Cooperative, No Acute Distress Eye Exam: PERRLA EOMI ENT EXAM: Atraumatic Neck Exam: Supple; Negative: Lymphadenopathy Chest Exam: Clear to auscultation Heart Exam: Rate Normal Breast Exam: Symmetric Bilaterally (Mild ptosis. ), Lumps or Masses (The right breast and axilla has no palpable lesions. In the left inferolateral breast there is a palpable sugical bed without any nodularity. In the left superior breast @ 12:00 approximately 8cm from the nipple there is a firm mobile, non- tender lesion ~ 2 cm in extent. There are no palpable lesions in the left axilla. Skin is WNL, no telangiectasias. There is a small hyperpigmented patch overlying the tumor bed on the left lateral inferior breast. ) Abdomen Exam: Soft Extremity Exam: Negative: Edema Skin Exam: Nl turgor and temperature Neuro Exam: Normal Gait, Normal Speech, Cranial Nerves 3-12 NL Psych Exam: Mental status NL Diagnostic and Laboratory Diagnostic Review Radiologic images, relevant labs and pathology reports were personally reviewed and discussed with Ms. Donohue. Assessment and Plan Impression Assessment Ms. Donohue is a 60 year old female with a history of left breast cancer , pT1cN0(sn)M0 ER/AK+ HER2- IDC Grade 2. She underwent lumpectomy with Dr. 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 She completed prone adjuvant RT 40 Gy in 15 fractions followed by 10 Gy in 5 fraction tumor bed boost completed 03/06/20. She was started on Anastrozole but discontinued after 1 month due to joint pains and hair thinning. Gabby has a new lesion in the left superomedial breast @ 12:00, she noted on self exam 1 month ago. I reviewed the December mammograms, no lesion was noted in this location that I could discern. She did have some cystic lesions in the 1:00 and 2:00 positions on the left on US from December, I do not believe these are the same lesion in question now. I suspect this to is a cystic lesion likely benign or possibly a focus of fat necrosis, as was noted on biopsy from July 2021 in a similar such lesion. In any event I will refer her back to Dr. Sandoval for her evaluation. For her intolerance of the Anastrozole I will facilitate medical oncology follow up for consideration of a different pill in that class. She did not make it to her last follow up with them due to insurance issues, and she has no scheduled follow up at this time. She has no additional concerns today so I will see her again in 6 months for surveillance and survivorship care. Performance Status ECOG [address] Sandoval for eval of left breast lesion @ 12:00 (suspect benign cyst) Will facilitate medical oncology follow up for consideration of another AI Follow up with me in 6 months time Ms. Donohue was encouraged to call with questions or concerns in the interim period. Billing Statement Total time of [26] minutes was spent preparing for the visit [1], obtaining HPI [4], examining the patient [4], reviewing diagnostic tests [4], discussing management options [5], coordinating care [1], and writing this note [7]. ALFA ESTRELLA MD Mar 06, 2021 12:23
== END ==
LOC: M ONCR 09:32
PROVIDERS: ATTEND General Practice
DX: C50.412 Malignant neoplasm of upper-outer quadrant of left female breast (principal); N63.20 Unspecified lump in the left breast, unspecified quadrant; Z92.3 Personal history of irradiation

== ENCOUNTER → 2021-04-03 | Outpatient (CLI) | payer MEDICARE, MEDICAID ==
[~2021-04-03] MED LIST changes: +AROM25TA PO
[2021-04-03 14:07] VITALS: BP 126/72
--- NOTE | 2021-04-07 18:57 | ROOPDOC ---
[facility] Report Of Operation Report of Operation DATE OF PROCEDURE: 04/03/21 DIAGNOSIS: left breast palpable cystic lesion PROCEDURE: ultrasound guided aspiration of cystic lesion followed by US guided biopsy of persistent palpable mass with clip placement SURGEON: Anna Leon BLOOD LOSS: minimal COMPLICATIONS: none Lidocaine 1% LOT [id number] Expiration 09/2023 Sodium Bicarbonate 8.4% LOT [id number] Expiration 07/2021 Hydromark clip LOT [id number] Expiration 10/2023 SHAPE: 3 Bx device: BARD [id number] x10 cm LOT [id number] Expiration 11/2023 Informed consent was obtained. The most common risk and possible complications including bleeding, hematoma, bruising, infection, injury to surrounding structures were explained to the patient and the patient expressed understanding. Patient was placed on the bed in the supine position. Appropriate time out was done stating patients name, date of , and the procedure to be performed. The left breast was prepped and draped in the usual fashion. The ultrasound and palpation was used to confirm the location of the lesion in the left breast at 11:00 9 centimeters from the nipple. Plain Lidocaine 1% and 8.4% sodium bicarbonate 10:1 mix was used to anesthetize the skin, the biopsy site and tissues along the anticipated biopsy tract. 18 G needle was used to aspirate 0.5 cc of fluid from 3 separate small cystic lesions under US guidance. Images were captures. Since palpable mass area persisted post aspiration, a small skin incision was made with blade number 11. BARD Marquee 14G cannula with introducer ([id number]) was inserted through the incision and advanced under the ultrasound and palpation guidance to position immediately adjacent to the lesion. Next, the introducer was removed and BARD Marquee 14G biopsy device was places in the cannula. Pre-biopsy imaging, and post-biopsy imaging were captured. Five good core biopsies were taken at various levels of the lesion. Specimen was placed in formaldehyde, labeled with appropriate biopsy site and patients name, and sent to pathology for evaluation. Next, the biopsy device was withdrawn and a clip introducer was inserted into the biopsy site via the cannula. SHAPE 3 Hydromark clip was deployed under sonographic guidance. Post-clip placement image was captured. Manual pressure over the biopsy cavity and tract was held after the clip introducer was withdrawn. No bleeding was noted upon removal of the pressure. Post-biopsy mammogram of the left breast was obtained and showed clip in expected position. Postprocedural dressing was placed. Patient tolerated procedure well. Discharge instructions were discussed with the patient and the patient expressed understanding. ANNA LEON DO Apr 07, 2021 18:57
== END ==
LOC: M WHCPRO 12:48
PROVIDERS: ATTEND Surgery
DX: D24.2 Benign neoplasm of left breast (principal); N63.22 Unspecified lump in the left breast, upper inner quadrant
CPT/HCPCS: 10005; 19083; 76642; 77065; 88173; 88305; G0279

== ENCOUNTER → 2021-06-28 | Outpatient (CLI) | payer MEDICARE, MEDICAID ==
[~2021-06-28] MED LIST changes: +ANAS1TAB2; +TAMO10TA PO
== END ==
LOC: M WHC 10:00
PROVIDERS: ATTEND Surgery
DX: N63.20 Unspecified lump in the left breast, unspecified quadrant (principal); D49.3 Neoplasm of unspecified behavior of breast; Z92.3 Personal history of irradiation; Z85.3 Personal history of malignant neoplasm of breast
CPT/HCPCS: 77066; G0279

== ENCOUNTER → 2021-10-18 | Outpatient (CLI) | payer MEDICAID, MEDICARE ==
[2021-10-18 09:01] LABS: HEMATOCRIT 45.6 % (36.0-47.0); HEMOGLOBIN 14.9 g/dl (12.0-15.5); MEAN CORPUSCULAR HEMOGLOBIN 30.5 pg (27.0-33.0); MEAN CORPUSCULAR HGB CONC 32.7 g/dl (32.0-36.5); MEAN CORPUSCULAR VOLUME 93.3 fl (80.0-96.0); PLATELET COUNT, AUTOMATED 261 10^3/uL (150-450); RED BLOOD COUNT 4.89 10^6/uL (4.00-5.40); WHITE BLOOD COUNT 9.7 10^3/uL (4.0-10.0)
[2021-10-18 09:47] LABS: ALBUMIN 3.9 GM/DL (3.2-5.2); ALT/SGPT 31 U/L (12-78); BILIRUBIN,TOTAL 0.6 MG/DL (0.2-1.0); BLOOD UREA NITROGEN 11 MG/DL (7-18); CALCIUM LEVEL 9.5 MG/DL (8.8-10.2); CARBON DIOXIDE LEVEL 30 MEQ/L (21-32); CHLORIDE LEVEL 110 MEQ/L (98-107); CHOLESTEROL LEVEL 231 MG/DL (<200); CHOLESTEROL RISK RATIO 3.982 (<5); CREATININE FOR GFR 0.75 MG/DL (0.55-1.30); GLOMERULAR FILTRATION RATE > 60.0 (>45); GLUCOSE, FASTING 93 MG/DL (70-100); HDL CHOLESTEROL 58 MG/DL (>40); LDL CHOLESTEROL 137 MG/DL (<100); NON-HDL-C 173 MG/DL; POTASSIUM SERUM 4.6 MEQ/L (3.5-5.1); SODIUM LEVEL 145 MEQ/L (136-145); THYROID STIMULATING HORMONE 0.826 uIU/ML (0.358-3.740); TOTAL PROTEIN 6.7 GM/DL (6.4-8.2); TRIGLYCERIDES LEVEL 179 MG/DL (<150)
== END ==
LOC: M LAB 08:27
PROVIDERS: ATTEND Nurse Practitioner Adult Health
DX: Z00.00 Encounter for general adult medical examination without abnormal findings (principal); E55.9 Vitamin D deficiency, unspecified; Z13.29 Encounter for screening for other suspected endocrine disorder; Z13.220 Encounter for screening for lipoid disorders

== ENCOUNTER → 2024-02-25 | Outpatient (CLI) | payer OTHER, MEDICAID ==
[~2024-02-25] MED LIST changes: -DOXY-350 PO; +DOXY-440 PO; +FLUO-365 PO; -FLUO20CA22 PO; -GLUCTAB6 PO; +GLUCTAB7 PO; -TAMO10TA PO; +TAMO10TA8 PO
== END ==
LOC: M WHC 13:59
PROVIDERS: ATTEND Nurse Practitioner Family
DX: Z12.31 Encounter for screening mammogram for malignant neoplasm of breast (principal); Z53.9 Procedure and treatment not carried out, unspecified reason

== ENCOUNTER → 2024-04-27 | Outpatient (CLI) | payer OTHER, MEDICAID ==
[~2024-04-27] MED LIST changes: -OLAN15TA13 PO; +OLAN15TA69 PO
[2024-04-27 15:42] LABS: HEMATOCRIT 42.7 % (36.0-47.0); HEMOGLOBIN 13.8 g/dl (12.0-15.5); MEAN CORPUSCULAR HEMOGLOBIN 30.7 pg (27.0-33.0); MEAN CORPUSCULAR HGB CONC 32.3 g/dl (32.0-36.5); MEAN CORPUSCULAR VOLUME 94.9 fl (80.0-96.0); PLATELET COUNT, AUTOMATED 306 10^3/uL (150-450); WHITE BLOOD COUNT 7.5 10^3/uL (4.0-10.0)
[2024-04-27 16:03] LABS: ALBUMIN 3.7 G/DL (3.2-5.2); ALKALINE PHOSPHATASE 102 U/L (35-104); ALT/SGPT 15 U/L (7.0-40); AST/SGOT 10 U/L (<34); BILIRUBIN,TOTAL 0.3 MG/DL (0.3-1.2); BLOOD UREA NITROGEN 13 MG/DL (9-23); CALCIUM LEVEL 10.3 MG/DL (8.3-10.6); CARBON DIOXIDE LEVEL 29 MMOL/L (20-31); CHLORIDE LEVEL 104 MMOL/L (98-107); CREATININE FOR GFR 0.71 MG/DL (0.55-1.30); FERRITIN 152.7 NG/ML (7.3-270.7); FREE T4 1.07 NG/DL (0.89-1.76); GLOMERULAR FILTRATION RATE > 60.0 (>45); GLUCOSE, FASTING 85 MG/DL (74-106); POTASSIUM SERUM 4.4 MMOL/L (3.5-5.1); SODIUM LEVEL 140 MMOL/L (136-145); THYROID STIMULATING HORMONE 2.402 uIU/ML (0.55-4.78); TOTAL PROTEIN 6.7 G/DL (5.7-8.2)
== END ==
LOC: M PLALAB 14:11
PROVIDERS: ATTEND Nurse Practitioner Adult Health
DX: Z00.00 Encounter for general adult medical examination without abnormal findings (principal); Z13.29 Encounter for screening for other suspected endocrine disorder; E55.9 Vitamin D deficiency, unspecified; R53.83 Other fatigue

== ENCOUNTER → 2025-03-21 | Outpatient (CLI) | payer OTHER, MEDICAID ==
[~2025-03-21] MED LIST changes: +OLAN7.5T38 PO; -OLAN7.5T8 PO; +PROZ10CA11 PO; -PROZ10CA7 PO
[2025-03-21 14:56] LABS: BASO # 0.1 10^3/uL (0.0-0.2); BASO % 0.9 % (0.0-1.0); EOS # 0.2 10^3/uL (0.0-0.5); EOS % 2.4 % (0.0-3.0); LYMPH # 2.0 10^3/uL (1.5-5.0); LYMPH % 25.3 % (24.0-44.0); MONO # 0.8 10^3/uL (0.0-0.8); MONO % 9.5 % (2.0-8.0); NEUTROPHILS # 4.9 10^3/uL (1.5-8.5); NEUTROPHILS % 61.6 % (36.0-66.0); PLATELET COUNT, AUTOMATED 329 10^3/uL (150-450)
[2025-03-21 15:14] LABS: ESTIMATED AVERAGE GLUCOSE 114.0 MG/DL (60-110)
[2025-03-21 15:26] LABS: ALT/SGPT 20 U/L (7.0-40); AST/SGOT 23 U/L (<34); CALCIUM LEVEL 10.0 MG/DL (8.3-10.6); CARBON DIOXIDE LEVEL 29 MMOL/L (20-31); CHLORIDE LEVEL 103 MMOL/L (98-107); CREATININE FOR GFR 0.74 MG/DL (0.55-1.30); GLOMERULAR FILTRATION RATE > 90.0 (>45); POTASSIUM SERUM 4.4 MMOL/L (3.5-5.1); PTH INTACT 36.6 PG/ML (18.5-88.0); SODIUM LEVEL 143 MMOL/L (136-145); TOTAL 25(OH) VITAMIN D 53.3 NG/ML (20.0-100.0)
[2025-03-22 17:27] LABS: PROTEIN, TOTAL SO 7.1 g/dL (6.1-8.1)
[2025-03-24 07:33] LABS: ALBUMIN SO 4.7 g/dL (3.8-4.8); ALPHA 1 GLOBULINS SO 0.3 g/dL (0.2-0.3); ALPHA 2 GLOBULINS SO 0.8 g/dL (0.5-0.9); BETA 2 GLOBULIN SO 0.3 g/dL (0.2-0.5); BETA GLOBULIN SO 0.4 g/dL (0.4-0.6); GAMMA GLOBULINS SO 0.7 g/dL (0.8-1.7)
== END ==
LOC: M PLALAB 11:43
PROVIDERS: ATTEND Family Medicine
DX: Z01.818 Encounter for other preprocedural examination (principal); E83.52 Hypercalcemia; R73.01 Impaired fasting glucose